=== PATIENT | male | born 1950 | race Caucasian/White ===

== ENCOUNTER 2018-05-25 20:06 | Emergency (ER) | payer OTHER ==
--- OUTSIDE RECORDS SUMMARY | 2018-05-25 20:10 | XMS REPORT | Clinical Summary ---
Author Author [facility] Address Unknown Phone Unavailable Care Team Providers Care Noxious Weeds And Pest Inspector Name Role Phone Asked, No Pcp PCP Unavailable Allergies No Known Allergies Medications End Date Status Medication Sig Dispensed Refills Start Date Active etodolac (LODINE XL) 500 Take 500 mg 0 MG 24 hr tablet by mouth daily. Takes 2 daily Active oxyCODone-acetaminophen Take 1 tablet 0 (PERCOCET) 10-325 mg per by mouth tablet every 4 (four) hours as needed for moderate pain. Active naproxen sodium (ALEVE) Take 220 mg 0 220 MG tablet by mouth 2 (two) times a day with meals. 10/24/2017 Discontinued NAPROXEN ORAL Take 1 tablet 0 by mouth 3 (three) times a day as needed. Active Problems Not on file Encounters Care Team Description Date Type Specialty Mo Tate MD 04/15/2018 Hospital Orthopedic Surgery Encounter Malinda Tate MD Goytia, Robin N., MD Preop testing (Primary Dx) 03/27/2018 Pre-Admit Pre-Admission Testing Testing Appointment Tyrell Sanches MD 10/24/2017 Anesthesia General Surgery Event Sina Madrigal II, MD RIGHT KNEE ARTHROSCOPIC PARTIAL MEDIAL MENISCECTOMY 10/24/2017 Surgery General Surgery Sina Madrigal II, MD 10/24/2017 Hospital General Surgery Encounter after 05/24/2017 Family History Medical History Relation Name Comments Cancer Father No Known Problems Mother Relation Name Status Comments Father Mother Social History Date Tobacco Use Types Packs/Day Years Used Quit: 09/2016 Former Smoker Cigarettes 1 45 Smokeless Tobacco: Never Used Alcohol Use Drinks/Week oz/Week Comments Yes 6 beers per week Sex Assigned at Date Recorded Not on file Industry Job Start Date Occupation Not on file Not on file Not on file Travel End Travel History Travel Start No recent travel history available. Last Filed Vital Signs Time Taken Vital Sign Reading 04/15/2018 6:54 AM CREATIVE PERFUMER Blood Pressure 188/86 04/15/2018 6:54 AM CREATIVE PERFUMER Pulse 65 04/15/2018 6:54 AM CREATIVE PERFUMER Temperature 36.4 C (97.5 F) 04/15/2018 6:54 AM CREATIVE PERFUMER Respiratory Rate 18 04/15/2018 6:54 AM CREATIVE PERFUMER Oxygen Saturation 98% - Inhaled Oxygen - Concentration 04/15/2018 6:54 AM CREATIVE PERFUMER Weight 108 kg (237 lb 12.8 oz) 04/15/2018 6:54 AM CREATIVE PERFUMER Height 175.3 cm (5' 9") 04/15/2018 6:54 AM CREATIVE PERFUMER Body Mass Index 35.12 Plan of Treatment Health Maintenance Due Date Last Done Comments COLON CANCER SCREENING 2002 SHINGLES VACCINES (1 of 2002 2) PNEUMOCOCCAL 2017 POLYSACCHARIDE VACCINE AGE 65 AND OVER PNEUMOCOCCAL-13 2017 INFLUENZA VACCINE 11/26/2017 Procedures Comments Procedure Name Priority Date/Time Associated Diagnosis POC GLUCOSE Routine 04/15/2018 9:27 AM CREATIVE PERFUMER HEMOGLOBIN A1C STAT 04/15/2018 8:51 AM CREATIVE PERFUMER POC GLUCOSE Routine 04/15/2018 8:05 AM CREATIVE PERFUMER POC GLUCOSE Routine 04/15/2018 6:41 AM CREATIVE PERFUMER POC GLUCOSE Routine 04/15/2018 6:39 AM CREATIVE PERFUMER TYPE AND SCREEN Routine 03/27/2018 Preop testing 10:54 AM CREATIVE PERFUMER GA AN ELECTIVE Routine 10/24/2017 SUPRAGLOTTIC AIRWAY 8:37 AM CDT Procedure Note - Lele Raymond, LOKESH - 10/24/2017 8:37 AM CDT Airway Date/Time: 10/24/2017 8:29 AM Performed by: LELE RAYMOND Authorized by: TYRELL SANCHES Location: OR Urgency: Elective Difficult Airway: No Resident/C RNA/AA: LELE RAYMOND Performed by: resident/C RNA/AA Preoxygena jovanni with 100% O2: Yes Mask Ventilatio n: Not attempted Final Airway Type: Supraglott ic airway Final LMA: Classic LMA Size: 5 Number of Attempts at Approach: 1 OPERATION, KNEE, 10/24/2017 Complex tear of medial ARTHROSCOPIC 7:30 AM CDT meniscus of right knee as current injury Special Needs O/P / OSCAR THOMAS TO ASSIST / after 05/24/2017 Results * POC glucose (04/15/2018 9:27 AM CREATIVE PERFUMER) Only the most recent of 4 results within the time period is included. POC glucose 305 (H) 65 - 99 mg/dL [facility] Comment: [facility] Notified RN Meter ID: [id number] Residential Advisor: Mariluz Denis Performing Organization Address City/State/Zipcode Phone Number [facility] DEPARTMENT OF [address] [place] [address] PATHOLOGY AND GENOMIC MEDICINE [address] * Hemoglobin A1c (04/15/2018 8:51 AM CREATIVE PERFUMER) Hemoglobin A1C 11.4 (H) 4.0 - 5.6 % [facility] Comment: HOSPITAL HbA1c cutoffs for diagnosing diabetes: 4.0% - 5.6%=normal 5.7% - 6.4%=increased risk for diabetes (prediabetes) >=6.5%=diabetes Goals for glycemic control (ADA 2016) < 7.0%Target for non adults with diabetes. More or less stringent targets may be appropriate for individual patients. <7.5% Target for Children and adolescents with type 1 diabetes. Specimen Blood Performing Organization Address City/[facility] Phone Number [facility] DEPARTMENT OF [address] [place] [address] PATHOLOGY AND GENOMIC MEDICINE [address] * Type and screen (03/27/2018 10:54 AM CREATIVE PERFUMER) ABO grouping B [facility] Rh type POS [facility] Antibody screen (gel) NEG [facility] Specimen Blood Performing Organization Address City/[facility]/Zipcode Phone Number [facility] DEPARTMENT [address] [address] PATHOLOGY AND GENOMIC MEDICINE [address] after 05/24/2017 Insurance Payer Benefit Subscriber ID Type Phone Address Plan / Group WORKERS COMP TRAVELERS xxxxxxx Workers Comp AETNA MEDICARE AETNA xxxxxxxx HMO MEDICARE HMO/PPO [facility] Zak Carreno Workers Self 1950 [phone] [id number] (Home) [place] [id number] Advance Directives Patient has advance care planning documents on file. For more information, joleen jensen contact: Albin Woods [address] [place] [address]
--- OUTSIDE RECORDS SUMMARY | 2018-05-25 20:10 | XMS REPORT ---
Author Author [facility] Address Unknown Phone Unavailable Care Team Providers Care Electrical Laboratory Technician Name Role Phone Unavailable Unavailable Payers Payer Name Policy Type Policy Number Effective Date Expiration Date Problems This patient has no known problems. Allergies, Adverse Reactions, Alerts Allergy Name Allergy Type Status Severity Reaction(s) Onset Date Inactive Date Treating Clinician Comments No Known Allergies DA Active U 2018-03-13 00:00:00 Medications This patient has no known medications.
--- OUTSIDE RECORDS SUMMARY | 2018-05-25 20:10 | XMS REPORT | Summary of Care ---
Author Author Amanda Burk M.A. Organization Unknown Address Unknown Phone Unavailable Care Team Providers Care Civil Geotechnical Engineer Name Role Phone Amanda Burk M.A. 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 Medications Name Dates Details Medications not documented Allergies and Adverse Reactions Name Dates Details No Known Allergies (Allergy) Status: Active Procedures Procedure Dates Details [QH] LIPID PANEL WITH REFLEX TO DIRECT LDL Date: 23-Apr-2017 [QLH] CBC (INCLUDES DIFF/PLT) Date: 23-Apr-2017 [QLH] CMP W/EGFR Date: 23-Apr-2017 [QLH] TSH, 3RD GENERATION W/REFLEX TO FT4 Date: 23-Apr-2017 [Q] FECAL GLOBIN BY IMMUNOCHEMISTRY Date: 23-Apr-2017 History of rotator cuff repair Completed Immunization Name Dates Details Immunizations not documented Family History Name Dates Details Family history of alcoholism (V17.0, Z81.1) Status: Active Social History Name Dates Details - Status: Name Dates Details Former smoker Vital Signs Date Test Result Details [id number] BP Systolic 135 mm[Hg] Status: Comments: Location: LUE; Position: Sitting BP Diastolic 85 mm[Hg] Status: Comments: Location: LUE; Position: Sitting Height 69 in Status: Weight 239 lb Status: Body Mass Index Calculated 35.29 kg/m2 Status: Body Surface Area Calculated 2.23 m2 Status: Temperature 97.9 f Status: Comments: Method: Temporal Respiration Rate 16 /min Status: Heart Rate 62 /min Status: Results Date Description Value Details [id number] [QH] LIPID PANEL WITH REFLEX TO DIRECT LDL CHOLESTEROL, TOTAL 175 mg/dl (Normal) Range: <200 HDL CHOLESTEROL 25 mg/dl (Below low threshold) Range: >40 TRIGLYCERIDES 311 mg/dl (Above high threshold) Range: <150 LDL-CHOLESTEROL 109 {MG/DL__CAL} (Above high threshold) Comments: Reference range: <100 Desirable range <100 mg/dL for patients with CHD ordiabetes and <70 mg/dL for diabetic patients withknown heart disease. LDL-C is now calculated using the Cailin calculation, which is a validated novel method providing better accuracy than the Friedewald equation in the estimation of LDL- C. Jackson DIXON et al. SHEYLA. 2013;310(19): 7899-6447 (http://education.[employer]/faq/ULP753) CHOL/HDLC RATIO 7.0 {CALC} (Above high threshold) Range: <5.0 NON HDL CHOLESTEROL 150 {MG/DL__CAL} (Above high threshold) Range: <130 Comments: For patients with diabetes plus 1 major ASCVD risk factor, treating to a non-HDL-C goal of <100 mg/dL (LDL-C of <70 mg/dL) is considered a therapeutic option. [id number] [[facility]] CMP W/EGFR GLUCOSE 148 mg/dl (Above high threshold) Range: 65-99 Comments: Fasting reference interval For someone without known diabetes, a glucosevalue >125 mg/dL indicates that they may havediabetes and this should be confirmed with afollow-up test. UREA NITROGEN (BUN) 16 mg/dl (Normal) Range: 7-25 CREATININE 0.99 mg/dl (Normal) Range: 0.70-1.25 Comments: For patients >49 years of age, the reference limitfor Creatinine is approximately 13% higher for peopleidentified as -[place]. eGFR NON- 80 {ML/MIN/1.7} (Normal) Range: > OR=60 eGFR 93 {ML/MIN/1.7} (Normal) Range: > OR=60 BUN/CREATININE RATIO NOT APPLICABLE {CALC} Range: 6-22 SODIUM 141 mmol/L (Normal) Range: 135-146 POTASSIUM 4.7 mmol/L (Normal) Range: 3.5-5.3 CHLORIDE 104 mmol/L (Normal) Range: 98-110 CARBON DIOXIDE 31 mmol/L (Normal) Range: 20-31 CALCIUM 9.1 mg/dl (Normal) Range: 8.6-10.3 PROTEIN, TOTAL 7.4 g/dl (Normal) Range: 6.1-8.1 ALBUMIN 4.6 g/dl (Normal) Range: 3.6-5.1 GLOBULIN 2.8 {G/DL__CALC} (Normal) Range: 1.9-3.7 ALBUMIN/GLOBULIN RATIO 1.6 {CALC} (Normal) Range: 1.0-2.5 BILIRUBIN, TOTAL 0.4 mg/dl (Normal) Range: 0.2-1.2 ALKALINE PHOSPHATE 71 u/l (Normal) Range: 40-115 AST 19 u/l (Normal) Range: 10-35 ALT 27 u/l (Normal) Range: 9-46 [id number] [[facility]] CBC (INCLUDES DIFF/PLT) WHITE BLOOD CELL COUNT 6.1 {Thousand/u} (Normal) Range: 3.8-10.8 RED BLOOD CELL COUNT 4.81 {Million/uL} (Normal) Range: 4.20-5.80 HEMOGLOBIN 14.8 g/dl (Normal) Range: 13.2-17.1 HEMATOCRIT 43.2 % (Normal) Range: 38.5-50.0 MCV 89.8 fL (Normal) Range: 80.0-100.0 MCH 30.8 pg (Normal) Range: 27.0-33.0 MCHC 34.3 g/dl (Normal) Range: 32.0-36.0 RDW 12.7 % (Normal) Range: 11.0-15.0 PLATELET COUNT 235 {Thousand/u} (Normal) Range: 140-400 MPV 10.4 fL (Normal) Range: 7.5-12.5 ABSOLUTE NEUTROPHILS 2751 {cells/uL} (Normal) Range: 0426-1417 ABSOLUTE LYMPHOCYTES 2355 {cells/uL} (Normal) Range: 850-3900 ABSOLUTE MONOCYTES 653 {cells/uL} (Normal) Range: 200-950 ABSOLUTE EOSINOPHILS 281 {cells/uL} (Normal) Range: 15-500 ABSOLUTE BASOPHILS 61 {cells/uL} (Normal) Range: 0-200 NEUTROPHILS 45.1 % (Normal) LYMPHOCYTES 38.6 % (Normal) MONOCYTES 10.7 % (Normal) EOSINOPHILS 4.6 % (Normal) BASOPHILS 1.0 % (Normal) [id number] [QL] TSH, 3RD GENERATION W/REFLEX TO FT4 Comments: REPORT COMMENT:FASTING:YESCOLLECTION KIT GIVEN TO PATIENT. PATIENT ADVISED TO RETURN. TSH, 3RD GENERATION W/REFLEX TO FT4 2.69 {MIU/L} (Normal) Range: 0.40-4.50 [id number] Tobacco Use Screening Completed DONE Plan of Care Name Dates Details Planned Observations Planned Goals not documented Instructions Name Dates Details Instructions not documented Encounters Appointment; FELICITAS RUTHERFORD D.O. Encounter Diagnosis: Problem not documented On: 23-Apr-2017 10:00
[2018-05-25] MEDS ORDERED: SODIUM CHLORIDE 0.9% 1000ML 1,000 ML IV STA (20:27)
[2018-05-25] MEDS ORDERED: ONDANSETRON HCL INJ 2MG/ML 2ML 2 MG/ML VIAL IV ONE (21:00)
[2018-05-25] MEDS ORDERED: MORPHINE SULFATE INJ 4 MG/ML INJ 1ML IV ONE (21:00)
--- NOTE | 2018-05-25 22:08 | NUR ---
PATIENT INFORMED THAT HE WAS ABOUT TO GO TO ROOM AND JUNIOR ACCOUNTANT BOOKKEEPER HERE TO PICK HIM UP FOR CT. PATIENT STATES HE WANTS TO LEAVE DUE TO HAVING TO GO TO WORK AND PAIN IS NOT RESOLVED. PATIENT STATES HE WILL COME BACK IF PAIN RETURNS.
[2018-05-25 22:34] LABS: BILIRUBIN,URINE NEGATIVE (NEGATIVE); CLARITY,URINE CLEAR (CLEAR); COLOR,URINE YELLOW (YELLOW); KETONES,URINE NEGATIVE (NEGATIVE); LEUKOCYTE ESTERASE ,URINE NEGATIVE (NEGATIVE); NITRITE,URINE NEGATIVE (NEGATIVE); PROTEIN,URINE DIPSTICK NEGATIVE (NEGATIVE); URINE UROBILINOGEN 0.2 mg/dL (0.2 - 1)
[2018-05-25 22:58] LABS: RBC,URINE 0-5 /HPF (0-5); WBC,URINE (MAN) 0-5 /HPF (0-5)
[2018-05-25 22:59] LABS: BACTERIA,URINE FEW /HPF; EPITHELIAL CELLS,URINE FEW /LPF; MUCUS,URINE MANY (RARE)
== END 2018-05-25 22:10 | disposition left against medical advice (07) ==
LOC: ER 20:06
DX: R10.2 Pelvic and perineal pain (principal)
CPT/HCPCS: 81001; 99281

== ENCOUNTER → 2018-11-03 | Outpatient (CLI) | payer MEDICARE ==
[~2018-11-03] MED LIST: ATORVASTATIN CA20 MG PO; COLACE100 MG PO; FISH OIL 1,0001 EAC2 PO; IOPAMIDOL 370 MG/ML 200 ML INFUS..BTL INJ ONE; JANUMET XR 50-1 EAC1 PO; LEVAQUIN500 MG PO; LISINOPRIL10 MG PO; PANTOPRAZOLE SO40 MG PO; SODIUM CHLORIDE 0.9% 50ML 50 ML ONE; TYLENOL # 31 EA PO; VITAMIN D3400 UNIT PEG
[2018-11-03 13:50] LABS: BLOOD UREA NITROGEN 15 mg/dL (7-26); BUN/CREATININE RATIO 14 (6-25); CREATININE, SERUM 1.06 mg/dL (0.72-1.25); EST GLOMERULAR FILTRATION RATE > 60 ML/MIN (60-)
--- NOTE | 2018-11-03 14:39 | Diagnostic Imaging Report ---
EXAMINATION: CHEST 2 VIEWS INDICATION: Prostate cancer COMPARISON: None FINDINGS: TUBES and LINES: None. LUNGS: The lung volumes are normal. No focal consolidation or pulmonary edema. PLEURA: No pleural effusion or pneumothorax. HEART AND MEDIASTINUM: The cardiomediastinal silhouette is normal in size and contour. Atherosclerotic calcifications of the thoracic aorta. BONES AND SOFT TISSUES: No acute fracture or dislocation. Moderate degenerative changes of the visualized spine. Postoperative changes of the right shoulder. UPPER ABDOMEN: No free air under the diaphragm. IMPRESSION: No suspicious lung nodules. Note is made that plain films lack sensitivity for detection of small lung nodules. If there is concern for metastatic disease, cross-sectional imaging should be obtained. No focal pneumonia or pulmonary edema. Signed by: Juancho Cabrera MD on 11/03/2018 2:36 PM
--- NOTE | 2018-11-03 15:11 | Diagnostic Imaging Report ---
EXAM: CT Pelvis WITH contrast INDICATION: Prostate cancer COMPARISON: None. TECHNIQUE: Pelvis were scanned utilizing a multidetector helical scanner from the iliac crest to the pubic symphysis following administration of IV contrast. Coronal and sagittal reformations were obtained. Routine protocol was performed. IV CONTRAST: 100 cc of Isovue-370 ORAL CONTRAST: None RADIATION DOSE: Total DLP: 362.61 mGy*cm Dose modulation, iterative reconstruction, and/or weight based adjustment of the mA/kV was utilized to reduce the radiation dose to as low as reasonably achievable. COMPLICATIONS: None FINDINGS: LINES and TUBES: None. GI TRACT: No abnormal distention, wall thickening, or evidence of bowel obstruction. Appendix is normal. PELVIC ORGANS/BLADDER: The prostate is enlarged, measuring up to 5.2 cm with coarse internal calcifications. LYMPH NODES: No lymphadenopathy. VESSELS: Atherosclerotic calcifications of the lower abdominal aorta and major branches. PERITONEUM / RETROPERITONEUM: No free air or fluid. BONES: Degenerative changes of the visualized spine with grade 1 anterolisthesis of L5 on S1. Degenerative changes involve both hip joints with joint space narrowing, subchondral cystic change and osteophytosis. No suspicious lytic or blastic lesions. SOFT TISSUES: There are bilateral left greater than right inguinal hernias. The left hernia contains loops of sigmoid colon. The right hernia is smaller and contains nondilated loops of small bowel. No evidence of bowel wall thickening, pneumatosis, or bowel obstruction. IMPRESSION: Enlarged prostate with coarse calcifications. Note is made that CT is not an optimal modality for evaluation of prostatic soft tissues. No suspicious blastic osseous lesions. Bilateral left greater than right inguinal hernias containing sigmoid colon on the left and small bowel on the right. No evidence of obstruction. Signed by: Juancho Cabrera MD on 11/03/2018 3:08 PM
--- NOTE | 2018-11-03 20:17 | Diagnostic Imaging Report ---
Bone Scan, delayed phase INDICATION: C61 Prostate cancer diagnosed 09/2018. Bilateral shoulder pain/ Right knee arthroplasty 05/2018. Right shoulder surgery 10 years ago. COMPARISON: CT pelvis 11/03/2018 REPORT: Approximately 3 hours following intravenous administration of 27 mCi of Tc-99m MDP, delayed total body images in the anterior and posterior projections and selected spot images were obtained. Degenerative changes are present in the upper cervical spine, multiple levels of the thoracic spine on the right and at L5/S1 as well as in the shoulders, right sternoclavicular joint, hips, left knee and feet. Increased tracer is seen surrounding both components of the right knee prosthesis, typical for prosthesis of less than one year. Otherwise, distribution of tracer activity is unremarkable throughout the skeletal system. Diffusely increased tracer is seen in the right thigh distally and right lower leg proximally related to hyperemic process post arthroplasty less than one year ago. No abnormal accumulation of tracer is seen in the urinary tract. IMPRESSION: 1. No scan evidence of metastatic bone disease. 2. No acute osteoblastic process is seen in the shoulders to suggest an etiology of shoulder pain other than mild degenerative changes. Signed by: Dr. Brisa Delgado M.D. on 11/03/2018 8:13 PM
== END ==
LOC: NM 12:39
PROVIDERS: ATTEND Urology
DX: C61 Malignant neoplasm of prostate (principal)
CPT/HCPCS: 36415; 71046; 72193; 78306; 82565; 84520; A9503; Q9967

== ENCOUNTER 2018-12-14 11:00 | Inpatient (IN) | payer MEDICARE ==
[2018-12-10 14:16] LABS: BASOPHILS % 0.7 % (0.0-1.0); EOSINOPHILS # (AUTO) 0.2 (0.0-0.4); EOSINOPHILS % 3.9 % (0.0-6.0); HEMATOCRIT 40.5 % (38.2-49.6); HEMOGLOBIN 13.8 g/dL (14.0-18.0); LYMPHOCYTES % 37.2 % (18.0-39.1); MEAN CORPUSCULAR HEMOGLOBIN 30.3 pg (28-32); MEAN CORPUSCULAR HGB CONC 34.1 g/dL (31-35); MONOCYTES # (AUTO) 0.6 (0.2-0.8); MONOCYTES % 10.8 % (4.4-11.3); NEUTROPHILS # (AUTO) 2.5 (2.1-6.9); PLATELET COUNT 186 x10e3/uL (140-360); RED BLOOD COUNT 4.55 x10e6/uL (4.3-5.7); RED CELL DISTRIBUTION WIDTH 13.4 % (11.7-14.4)
[2018-12-10 14:35] LABS: ANION GAP 12.1 mmol/L (8-16); BLOOD UREA NITROGEN 14 mg/dL (7-26); BUN/CREATININE RATIO 14 (6-25); CALCIUM 8.9 mg/dL (8.4-10.2); CARBON DIOXIDE 26 mmol/L (22-29); CHLORIDE 103 mmol/L (98-107); CREATININE, SERUM 0.97 mg/dL (0.72-1.25); EST GLOMERULAR FILTRATION RATE > 60 ML/MIN (60-); GLUCOSE 87 mg/dL (74-118); POTASSIUM 4.1 mmol/L (3.5-5.1); SODIUM 137 mmol/L (136-145)
[~2018-12-14] VITALS: Ht 175.3 cm; Wt 104.9 kg
[~2018-12-14 11:00] MED LIST changes: -COLACE100 MG PO; -IOPAMIDOL 370 MG/ML 200 ML INFUS..BTL INJ ONE; -LEVAQUIN500 MG PO; -PANTOPRAZOLE SO40 MG PO; -SODIUM CHLORIDE 0.9% 50ML 50 ML ONE; -TYLENOL # 31 EA PO
--- OUTSIDE RECORDS SUMMARY | 2018-12-14 11:07 | XMS REPORT | Clinical Summary ---
Author Author [facility] Organization [facility] Address Unknown Phone Unavailable Care Team Providers Care Senior Infrastructure Architect Name Role Phone Asked, No Pcp PCP Unavailable Allergies No Known Allergies Medications End Date Status Medication Sig Dispensed Refills Start Date Active sitaGLIPtin-metformin Take by 0 (JANUMET XR) 50-1,000 mg mouth. tablet, ER multiphase 24 hr Active acetaminophen-codeine Take 1 tablet 0 (TYLENOL WITH CODEINE #3) by mouth 300-30 mg per tablet every 4 (four) hours as needed for moderate pain. Active lisinopril Take 10 mg by 0 (PRINIVIL,ZESTRIL) 10 mg mouth 2 (two) tablet times a day. Active atorvastatin (LIPITOR) 20 Take 20 mg by 0 MG tablet mouth daily. Default OP ins Active docosahexanoic acid/epa Take by 0 (FISH OIL ORAL) mouth. Active cholecalciferol, vitamin Take 1,000 0 D3, (VITAMIN D3) 1,000 Units by unit tablet mouth daily. 06/15/2018 Discontinued etodolac (LODINE XL) 500 Take 500 mg 0 MG 24 hr tablet by mouth daily. Takes 2 daily 06/15/2018 Discontinued oxyCODone-acetaminophen Take 1 tablet 0 (PERCOCET) 10-325 mg per by mouth tablet every 4 (four) hours as needed for moderate pain. 06/15/2018 Discontinued naproxen sodium (ALEVE) Take 220 mg 0 220 MG tablet by mouth 2 (two) times a day with meals. 07/25/2018 aspirin (ECOTRIN) 81 MG Take 1 tablet 60 tablet 0 enteric coated tablet (81 mg total) 9 by mouth 2 (two) times a day for 30 days. 07/25/2018 HYDROcodone-acetaminophen Take 2 0 (NORCO) 10-325 mg per tablets by 9 tablet mouth every 6 (six) hours as needed for severe pain for up to 30 days. Max Daily Amount: 8 tablets Active Problems Problem Noted Date Arthritis of right knee 06/25/2018 Arthritis of knee, right 06/24/2018 Encounters Care Team Description Date Type Specialty Mo Tate MD ARTHROPLASTY, KNEE, TOTAL 06/24/2018 Surgery Orthopedic Surgery Redd Narvaez MD Delaflor-Santaana, Miriam, NP 06/24/2018 Anesthesia Orthopedic Surgery Event Mo Tate MD 06/24/2018 Hospital Orthopedic Surgery - Encounter 06/25/2018 Mo Tate MD Preoperative testing (Primary Dx) 06/15/2018 Pre-Admit Pre-Admission Testing Testing Appointment Mo Tate MD 04/15/2018 Hospital Orthopedic Surgery Encounter Malinda Tate MD Goytia, Robin N., MD Preop testing (Primary Dx) 03/27/2018 Pre-Admit Pre-Admission Testing Testing Appointment after 12/13/2017 Immunizations Name Administration Dates Next Due Pneumococcal Conjugate 06/25/2018 13-Valent Family History Medical History Relation Name Comments Cancer Father No Known Problems Mother Relation Name Status Comments Father Mother Social History Date Tobacco Use Types Packs/Day Years Used Quit: 09/2016 Former Smoker Cigarettes 1 45 Smokeless Tobacco: Never Used Drinks/Week oz/Week Comments Alcohol Use 6 beers per week, quit Yes Sex Assigned at Date Recorded Not on file Industry Job Start Date Occupation Not on file Not on file Not on file Travel End Travel History Travel Start No recent travel history available. Last Filed Vital Signs Reading Time Taken Comments Vital Sign 143/75 06/25/2018 11:44 AM CRIME SCENE SPECIALIST Blood Pressure 72 06/25/2018 11:44 AM CRIME SCENE SPECIALIST Pulse 36 C (96.8 F) 06/25/2018 11:44 AM CRIME SCENE SPECIALIST Temperature 18 06/25/2018 11:44 AM CRIME SCENE SPECIALIST Respiratory Rate 98% 06/25/2018 11:44 AM CRIME SCENE SPECIALIST Oxygen Saturation - - Inhaled Oxygen Concentration 103 kg (228 lb) 06/24/2018 4:34 PM CRIME SCENE SPECIALIST Weight 175.3 cm (5' 9") 06/24/2018 4:34 PM CRIME SCENE SPECIALIST Height 33.67 06/24/2018 4:34 PM CRIME SCENE SPECIALIST Body Mass Index Plan of Treatment Health Maintenance Due Date Last Done Comments COLONOSCOPY SCREENING 2002 SHINGLES VACCINES (#1) 2002 INFLUENZA VACCINE 11/26/2018 65+ PNEUMOCOCCAL VACCINE 06/25/2019 06/25/2018 (2 of 2 - PPSV23) Implants Device Identifier Shelf Expiration Date Model / Serial / Lot Implanted Type Area Manufactur er 04/27/2023 1518 20 041 / / [id number] Attune Medial Dome Pat 41mm - IPM Right: Knee DEPUY [id number] IMPLANT ORTHOPAEDI Implanted: Qty: 1 on 06/24/2018 by DEVICES ENDY LEAL Robin N., MD at [facility] 05/28/2027 [id number] / / [id number] Attune Fb Tib Base Sz 9 Wyatt - IPM Right: Knee DEPUY [id number] IMPLANT ORTHOPAEDI Implanted: Qty: 1 on 06/24/2018 by DEVICES ENDY LEAL Robin N., MD at [facility] 04/27/2022 [id number] / / [id number] Attune Fb Knee Insert Attune Ps Fb IPM Right: Knee DEPUY Insrt Sz 9 7mm - [id number] IMPLANT ORTHOPAEDI Implanted: Qty: 1 on 06/24/2018 by DEVICES ENDY LEAL Robin N., MD at [facility] [id number] 10 [id number] / / Attune Fb Knee Femur Attune Ps Fem IPM DEPUY Rt Sz 9 Wyatt - [id number] IMPLANT ORTHOPAEDI Implanted: Qty: 1 on 06/24/2018 by DEVICES ENDY LEAL Robin N., MD at [facility] 10/26/2019 [id number] / / [id number] Cement Bone Hiviscocty 40gr Surgical Right: Knee DEPUY Smartset - [id number] Bone ORTHO Implanted: Qty: 2 on 06/24/2018 by Mo Bowers MD at [facility] Procedures Comments Procedure Name Priority Date/Time Associated Diagnosis POC GLUCOSE Routine 06/25/2018 12:07 PM CRIME SCENE SPECIALIST POC GLUCOSE Routine 06/25/2018 7:17 AM CRIME SCENE SPECIALIST ESTIMATED GFR Routine 06/25/2018 3:26 AM CRIME SCENE SPECIALIST BASIC METABOLIC PANEL Routine 06/25/2018 3:26 AM CRIME SCENE SPECIALIST HEMOGLOBIN & HEMATOCRIT Routine 06/25/2018 3:26 AM CRIME SCENE SPECIALIST POC GLUCOSE Routine 06/24/2018 9:47 PM CRIME SCENE SPECIALIST POC GLUCOSE Routine 06/24/2018 4:02 PM CRIME SCENE SPECIALIST XR KNEE 1 OR 2 VW RIGHT Routine 06/24/2018 12:58 PM CRIME SCENE SPECIALIST POC GLUCOSE Routine 06/24/2018 12:05 PM CRIME SCENE SPECIALIST KS AN ELECTIVE Routine 06/24/2018 SUPRAGLOTTIC AIRWAY 10:56 AM CRIME SCENE SPECIALIST Procedure Note - Manuelito Mas CRNA - 06/24/2018 10:56 AM CRIME SCENE SPECIALIST Airway Date/Time: 06/24/2018 10:35 AM Performed by: Manuelito Mas CRNA Authorized by: Redd Narvaez MD Location: OR Urgency: Elective Difficult Airway: No Anesthesio logist: Redd Narvaez MD Resident/C RNA/AA: Manuelito Mas CRNA Performed by: resident/C RNA/AA Preoxygena jovanni with 100% O2: Yes C-spine Precaution s Maintained Throughout : Yes Final Airway Type: Supraglott ic airway Final LMA: Classic LMA Size: 5 Number of Attempts at Approach: 2 Eyes taped closed at LOC and prior to airway manipulati on. Atraumatic placement of LMA att x 2 by LOKESH; inadequate seal with I-gel #5, good seal with Classic #5. +EtCO2, +BBS. Dentition unchanged. No complicati ons. ARTHROPLASTY, KNEE, TOTAL 06/24/2018 Arthritis of right knee 10:30 AM CRIME SCENE SPECIALIST POC GLUCOSE Routine 06/24/2018 10:30 AM CRIME SCENE SPECIALIST URINE CULTURE Routine 06/15/2018 2:40 PM CRIME SCENE SPECIALIST ESTIMATED GFR Routine 06/15/2018 2:35 PM CRIME SCENE SPECIALIST TYPE AND SCREEN Routine 06/15/2018 Preoperative testing 2:35 PM CRIME SCENE SPECIALIST URINALYSIS SCREEN AND Routine 06/15/2018 Preoperative testing MICROSCOPY, WITH REFLEX 2:35 PM CRIME SCENE SPECIALIST TO CULTURE HEMOGLOBIN A1C Routine 06/15/2018 Preoperative testing 2:35 PM CRIME SCENE SPECIALIST PROTHROMBIN TIME WITH INR Routine 06/15/2018 Preoperative testing 2:35 PM CRIME SCENE SPECIALIST PARTIAL THROMBOPLASTIN Routine 06/15/2018 Preoperative testing TIME (PTT) 2:35 PM CRIME SCENE SPECIALIST COMPREHENSIVE METABOLIC Routine 06/15/2018 Preoperative testing PANEL 2:35 PM CRIME SCENE SPECIALIST HC COMPLETE BLD COUNT Routine 06/15/2018 Preoperative testing W/AUTO DIFF 2:35 PM CRIME SCENE SPECIALIST ECG 12-LEAD Routine 06/15/2018 Preoperative testing 2:31 PM CRIME SCENE SPECIALIST POC GLUCOSE Routine 04/15/2018 9:27 AM CRIME SCENE SPECIALIST HEMOGLOBIN A1C STAT 04/15/2018 8:51 AM CRIME SCENE SPECIALIST POC GLUCOSE Routine 04/15/2018 8:05 AM CRIME SCENE SPECIALIST POC GLUCOSE Routine 04/15/2018 6:41 AM CRIME SCENE SPECIALIST POC GLUCOSE Routine 04/15/2018 6:39 AM CRIME SCENE SPECIALIST TYPE AND SCREEN Routine 03/27/2018 Preop testing 10:54 AM CRIME SCENE SPECIALIST after 12/13/2017 Results * POC glucose (06/25/2018 12:07 PM CRIME SCENE SPECIALIST) Only the most recent of 10 results within the time period is included. [facility] POC glucose 174 (H) 65 - 99 mg/dL [facility] Comment: [facility] Notified RN HOSPITAL Meter ID: [id number] Salvage Engineer: Mau Gooden Specimen Performing Organization Address City/State/Zipcode Phone Number [facility] DEPARTMENT OF [address] [place] [address] PATHOLOGY AND GENOMIC MEDICINE [facility] [address] [place] [id number] HOSPITAL * Estimated GFR (06/25/2018 3:26 AM CRIME SCENE SPECIALIST) Only the most recent of 2 results within the time period is included. [facility] Estimated GFR 75 mL/min/1.73 m2 [facility] Comment: [facility] rpretation G1 >=90 Normal or high G2 60-89Mildly decreased [id number] Mildly to moderately decreased [id number] Moderately to severely decreased G4 15-29Severely decreased G5 <15Kidney failure The eGFR was calculated using the Chronic Kidney Disease Epidemiology Collaboration (CKD-EPI) equation. Interpretation is based on recommendations of the National Kidney Foundation-Kidney Disease Outcomes Quality Initiative (NKF-KDOQI) published in 2014. Specimen Plasma specimen Performing Organization Address City/[facility] Phone Number [facility] [place] [address] PATHOLOGY AND [facility] MED[facility] [address] * Hemoglobin & hematocrit (06/25/2018 3:26 AM CRIME SCENE SPECIALIST) [facility] HGB 12.8 (L) 14.0 - 18.0 g/dL [facility] HCT 39.1 (L) 41.0 - 51.0 % [facility] Specimen Blood Performing Organization Address [facility] Phone Number [facility] [place] [address] PATHOLOGY AND [facility] [address] * Basic metabolic panel (06/25/2018 3:26 AM CRIME SCENE SPECIALIST) [facility] Sodium 137 135 - 148 mEq/L [facility] Potassium 4.4 3.5 - 5.0 mEq/L [facility] Chloride 99 98 - 112 mEq/L [facility] CO2 21 (L) 24 - 31 mEq/L [facility] Anion gap 17@ANIO (H) 7 - 15 mEq/L [facility] BUN 16 8 - 23 mg/dL [facility] Creatinine 1.03 0.70 - 1.20 mg/dL [facility] Glucose 163 (H) 65 - 99 mg/dL [facility] Calcium 9.2 8.8 - 10.2 mg/dL [facility] Specimen Plasma specimen Performing Organization Address [facility] Phone Number [facility] [place] [address] PATHOLOGY AND [facility] [address] * XR Knee 1 Or 2 Vw Right (06/24/2018 12:58 PM CRIME SCENE SPECIALIST) Specimen Narrative Performed At EXAMINATION: XR KNEE 1 OR 2 VW RIGHT [facility] INDICATION: total knee arthoplasty COMPARISON: None IMPRESSION: 2 views of the right knee were obtained which demonstrate expected postoperative changes following total knee arthroplasty with appropriate implant alignment. [facility]-[id number] Procedure Note Interface, Radiology Results Incoming - 06/24/2018 1:54 PM CRIME SCENE SPECIALIST EXAMINATION: XR KNEE 1 OR 2 VW RIGHT INDICATION: total knee arthoplasty COMPARISON: None IMPRESSION: 2 views of the right knee were obtained which demonstrate expected postoperative changes following total knee arthroplasty with appropriate implant alignment. [facility]-[id number] Performing Organization Address City/State/Zipcode Phone Number [facility] [address] [place] [address] * Urine culture (06/15/2018 2:40 PM CRIME SCENE SPECIALIST) Urine culture SEE COMMENTComment: [facility] Bacteriuria screen negative. [facility] Specimen Performing Organization Address [facility] Phone Number [facility] DEPARTMENT OF [address] [place] [address] PATHOLOGY [place] [address] HOSPITAL * Urinalysis screen and microscopy, with reflex to culture (06/15/2018 2:35 PM CRIME SCENE SPECIALIST) Specimen site Clean catch [facility] Color, UA Yellow [facility] Appearance, UA Clear [facility] Specific 1.020 1.001 - 1.035 [facility] gravity, [facility] pH, UA 5.0 5.0 - 8.5 [facility] Protein, UA Negative Negative [facility] Glucose, UA Negative Negative [facility] Ketones, UA Negative Negative [facility] Bilirubin, UA Negative Negative [facility] Blood, UA Negative Negative [facility] Nitrite, UA Negative Negative [facility] Urobilinogen, <2.0 <2.0 [facility] Leukocyte Negative Negative [facility] esterase, [facility] WBC, UA 1 0 - 1 /HPF [facility] RBC, UA 2 0 - 5 /HPF [facility] Bacteria, UA None seen None seen [facility] Yeast, UA None seen [facility] Yeast with None seen [facility] pseudohyphae, [facility] Specimen Urine Performing Organization Address City/[facility] Phone Number [facility] DEPARTMENT OF [address] [place] [address] PATHOLOGY AND GENOMIC MEDICINE [address] * Partial thromboplastin time, activated (06/15/2018 2:35 PM CRIME SCENE SPECIALIST) [facility] PTT 37.9 (H) 23.0 - 36.0 sec [facility] Comment: [facility] PTT therapeutic range for HOSPITAL unfractionated heparin is 61.0-112.0 seconds which corresponds to Anti-Xa 0.3-0.7 U/ml. Specimen Blood Performing Organization Address City/[facility]/Zipcode Phone Number [facility] DEPARTMENT OF [address] [place] [address] PATHOLOGY AND [facility] [address] * Prothrombin time with INR (06/15/2018 2:35 PM CRIME SCENE SPECIALIST) [facility] Prothrombin 14.0 11.5 - 14.5 sec [facility] INR 1.1 [facility] Comment: [facility] The International Normalized HOSPITAL Ratio (INR) is a therapeutic monitoring tool for patients who are stable on oral anticoagulant therapy. An INR of 2.0-3.0 is suggested for deep vein thrombosis/pulmonary embolism. Specimen Blood Performing Organization Address City/[facility] Phone Number [facility] DEPARTMENT OF [address] [place] [address] PATHOLOGY AND [facility] [address] * CBC with platelet and differential (06/15/2018 2:35 PM CRIME SCENE SPECIALIST) [facility] WBC 5.92 4.50 - 11.00 k/uL [facility] RBC 4.58 4.40 - 6.00 m/uL [facility] HGB 13.9 (L) 14.0 - 18.0 g/dL [facility] HCT 43.3 41.0 - 51.0 % [facility] MCV 94.5 82.0 - 100.0 fL [facility] MCH 30.3 27.0 - 34.0 pg [facility] MCHC 32.1 31.0 - 37.0 g/dL [facility] RDW - SD 42.9 37.0 - 55.0 fL [facility] MPV 10.2 8.8 - 13.2 fL [facility] Platelet count 230 150 - 400 k/uL [facility] Nucleated RBC 0.00 /100 WBC [facility] Neutrophils 60.7 39.0 - 69.0 % [facility] Lymphocytes 28.7 25.0 - 45.0 % [facility] Monocytes 6.6 0.0 - 10.0 % [facility] Eosinophils 3.2 0.0 - 5.0 % [facility] Basophils 0.5 0.0 - 1.0 % [facility] Immature 0.3Comment: "Immature 0.0 - 1.0 % [facility] granulocytes granulocytes" (promyelocytes, [facility] myelocytes, metamyelocytes) [facility] Specimen Blood Performing Organization Address City/[facility] Phone Number [facility] [place] [address] PATHOLOGY AND GENOMIC MEDICINE [address] * Type and screen (06/15/2018 2:35 PM CRIME SCENE SPECIALIST) Only the most recent of 2 results within the time period is included. ABO grouping B [facility] Rh type POS [facility] Antibody screen NEG [facility] (gel) [facility] Specimen Blood Performing Organization Address City/[facility] Phone Number [facility] [place] [address] PATHOLOGY AND GENOMIC MEDICINE [address] * Hemoglobin A1c (06/15/2018 2:35 PM CRIME SCENE SPECIALIST) Only the most recent of 2 results within the time period is included. Hemoglobin A1C 7.7 (H) 4.0 - 5.6 % [facility] Comment: [facility] HbA1c cutoffs for diagnosing HOSPITAL diabetes: 4.0% - 5.6%=normal 5.7% - 6.4%=increased risk for diabetes (prediabetes) >=6.5%=diabetes Goals for glycemic control (ADA 2016) < 7.0%Target for non adults with diabetes. More or less stringent targets may be appropriate for individual patients. <7.5% Target for Children and adolescents with type 1 diabetes. Specimen Blood Performing Organization Address City/State/Zipcode Phone Number [facility] DEPARTMENT OF [address] [place] [address] PATHOLOGY AND GENOMIC MEDICINE [address] * Comprehensive metabolic panel (06/15/2018 2:35 PM CRIME SCENE SPECIALIST) Sodium 141 135 - 148 mEq/L [facility] Potassium 4.0 3.5 - 5.0 mEq/L [facility] Chloride 101 98 - 112 mEq/L [facility] CO2 23 (L) 24 - 31 mEq/L [facility] Anion gap 17@ANIO (H) 7 - 15 mEq/L [facility] BUN 15 8 - 23 mg/dL [facility] Creatinine 0.95 0.70 - 1.20 mg/dL [facility] Glucose 217 (H) 65 - 99 mg/dL [facility] Calcium 9.3 8.8 - 10.2 mg/dL [facility] Protein 7.8 6.3 - 8.3 g/dL [facility] Comment: [facility] 4.6-7.0 g/dL 1 week 4.4-7.6 g/dL 7 months-1year 5.1-7.3 g/dL 1-2 years5.6-7 .5 g/dL >3 years6.0-8 .0 g/dL 18-150 6.3-8.3 g/dL Albumin 4.2 3.5 - 5.0 g/dL [facility] A/G ratio 1.2 0.7 - 3.8 [facility] Alkaline 70 40 - 129 U/L [facility] phosphatase [facility] AST 33 10 - 50 U/L [facility] ALT 47 5 - 50 U/L [facility] Total bilirubin 0.4 0.0 - 1.2 mg/dL [facility] Specimen Plasma specimen Performing Organization Address City/State/Zipcode Phone Number [facility] DEPARTMENT OF [address] [place] [phone] PATHOLOGY [place] [address] HOSPITAL * ECG 12 lead (06/15/2018 2:31 PM CRIME SCENE SPECIALIST) Ventricular 65 [facility]USE rate Atrial rate 65 [facility] [place] interval 210 [facility] QRSD interval 94 [facility] QT interval 394 [facility] QTC interval [address] [facility] MUSE P axis 1 51 [facility] QRS axis 1 61 [facility] T wave axis [address] [facility] MUSE EKG impression Sinus rhythm with 1st [address] [facility] MUSE AV block-Otherwise normal ECG-No previous ECGs available- Specimen Narrative Performed At Performing Organization Address City/State/Zipcode Phone Number [facility] MUSE [address] [place] [address] after 12/13/2017 Insurance Type Payer Benefit Subscriber ID Effective Phone Address Plan / Dates Group HMO AETNA MEDICARE AETNA xxxxxxxx 2018- MEDICARE Present HMO/PPO MCR Workers Comp WORKERS COMP TRAVELERS xxxxxxx 2017- Present Advance Directives For more information, please contact: [phone] Patient Endodontic Assistant Explanation Type Date Recorded Advance Directives, 10/23/2017 1:32 PM Living Will and Medical Power of Hospitalist Physician
[2018-12-14] MEDS ORDERED: GENTAMICIN 80MG/NS 100 ML 200 ML IV ONE (11:30)
[2018-12-14] MEDS ORDERED: CLINDAMYCIN PHOS 900MG/ 50ML 50 ML IV ONE (11:30)
[2018-12-14] MEDS ORDERED: PIPER-TAZ 3.375 GM 50 ML ONE (11:30)
[2018-12-14] MEDS ORDERED: METHYLENE BLUE 1% INJ 10 ML VIAL INJ ONE (13:05)
[2018-12-14] MEDS ORDERED: LIDOCAINE HCL 2% LOCAL INJ 5 ML SDV VIAL INJ ONE (13:57)
[2018-12-14] MEDS ORDERED: SEVOFLURANE INHAL SOLN 250 ML PEN BTL ONE (13:57)
[2018-12-14] MEDS ORDERED: ACETAMINOPHEN 1000 MG/100 ML IV ONE (13:57)
[2018-12-14] MEDS ORDERED: PROPOFOL IV EMULSION 10 MG/ML 20 ML VIAL ONE (13:57)
[2018-12-14] MEDS ORDERED: ROCURONIUM BROMIDE 10 MG/ML 5ML VIAL ONE (13:57)
[2018-12-14] MEDS ORDERED: DEXAMETHASONE SOD PHOS INJ 4 MG/ML VIAL ONE (13:57)
[2018-12-14] MEDS ORDERED: EPHEDRINE SULFATE INJ 50 MG/10 ML SYR ONE (13:57)
[2018-12-14] MEDS ORDERED: MORPHINE SULFATE INJ 10 MG/ML ONE ×2 (14:04→18:21)
[2018-12-14] MEDS ORDERED: MIDAZOLAM HCL 2 MG/2 ML VIAL ONE (14:04)
[2018-12-14] MEDS ORDERED: FENTANYL CITRATE/PF 100MCG/2 ML INJ ONE (14:04)
[2018-12-14] MEDS ORDERED: ONDANSETRON HCL INJ 2MG/ML 2ML 2 MG/ML VIAL IV PRN (16:15)
[2018-12-14] MEDS ORDERED: NALOXONE HCL INJ 0.4 MG/ML AMP IV PRN (16:15)
[2018-12-14] MEDS ORDERED: MORPHINE SULFATE 1 MG/ML 30ML PCA IV PRN (16:15)
[2018-12-14] MEDS ORDERED: DIPHENHYDRAMINE HCL 25 MG CAP PO PRN (16:15)
--- OUTSIDE RECORDS SUMMARY | 2018-12-14 16:25 | XMS REPORT | Clinical Summary ---
Author Author [facility] Address Unknown Phone Unavailable Care Team Providers Care Dtp Operator Name Role Phone Asked, No Pcp PCP [...] Comments Vital Sign 143/75 06/25/2018 11:44 AM CHILD DEVELOPMENT PROFESSOR Blood Pressure 72 06/25/2018 11:44 AM CHILD DEVELOPMENT PROFESSOR Pulse 36 C (96.8 F) 06/25/2018 11:44 AM CHILD DEVELOPMENT PROFESSOR Temperature 18 06/25/2018 11:44 AM CHILD DEVELOPMENT PROFESSOR Respiratory Rate 98% 06/25/2018 11:44 AM CHILD DEVELOPMENT PROFESSOR Oxygen Saturation - - Inhaled Oxygen Concentration 103 kg (228 lb) 06/24/2018 4:34 PM CHILD DEVELOPMENT PROFESSOR Weight 175.3 cm (5' 9") 06/24/2018 4:34 PM CHILD DEVELOPMENT PROFESSOR Height 33.67 06/24/2018 4:34 PM CHILD DEVELOPMENT PROFESSOR Body Mass Index Plan of Treatment Health Maintenance Due Date Last Done Comments COLONOSCOPY SCREENING 2002 SHINGLES VACCINES (#1) 2002 INFLUENZA VACCINE 11/26/2018 65+ PNEUMOCOCCAL VACCINE 06/25/2019 06/25/2018 (2 of 2 - PPSV23) Implants Device Identifier Shelf Expiration Date Model / Serial / Lot Implanted Type Area Manufactur er 04/27/2023 1518 20 041 / / [id number] Attune Medial Dome Pat 41mm - IPM Right: Knee DEPUY [id number] IMPLANT ORTHOPAEDI Implanted: Qty: 1 on 06/24/2018 by DEVICES ENDY LEAL Robin N., MD at [facility] 05/28/2027 [id number] / / [id number] Attune Fb Tib Base Sz 9 Wyatt - IPM Right: Knee DEPUY [id number] IMPLANT ORTHOPAEDI Implanted: Qty: 1 on 06/24/2018 by DEVICES ENDY LEAL Robin N., MD at [facility] 04/27/2022 [id number] / / [id number] Attune Fb Knee Insert Attune Ps Fb IPM Right: Knee DEPUY Insrt Sz 9 7mm - [id number] IMPLANT ORTHOPAEDI Implanted: Qty: 1 on 06/24/2018 by DEVICES ENDY LEAL Robin N., MD at [facility] [id number] / / Attune Fb Knee Femur Attune Ps Fem IPM DEPUY Rt Sz 9 Wyatt - [id number] IMPLANT ORTHOPAEDI Implanted: Qty: 1 on 06/24/2018 by DEVICES ENDY LEAL Robin N., MD at [facility] 10/26/2019 [id number] / / [id number] Cement Bone Hiviscocty 40gr Surgical Right: Knee DEPUY Smartset - [id number] Bone ORTHO Implanted: Qty: 2 on 06/24/2018 by Mo Bowers MD at [facility] Procedures Comments Procedure Name Priority Date/Time Associated Diagnosis POC GLUCOSE Routine 06/25/2018 12:07 PM CHILD DEVELOPMENT PROFESSOR POC GLUCOSE Routine 06/25/2018 7:17 AM CHILD DEVELOPMENT PROFESSOR ESTIMATED GFR Routine 06/25/2018 3:26 AM CHILD DEVELOPMENT PROFESSOR BASIC METABOLIC PANEL Routine 06/25/2018 3:26 AM CHILD DEVELOPMENT PROFESSOR HEMOGLOBIN & HEMATOCRIT Routine 06/25/2018 3:26 AM CHILD DEVELOPMENT PROFESSOR POC GLUCOSE Routine 06/24/2018 9:47 PM CHILD DEVELOPMENT PROFESSOR POC GLUCOSE Routine 06/24/2018 4:02 PM CHILD DEVELOPMENT PROFESSOR XR KNEE 1 OR 2 VW RIGHT Routine 06/24/2018 12:58 PM CHILD DEVELOPMENT PROFESSOR POC GLUCOSE Routine 06/24/2018 12:05 PM CHILD DEVELOPMENT PROFESSOR CA AN ELECTIVE Routine 06/24/2018 SUPRAGLOTTIC AIRWAY 10:56 AM CHILD DEVELOPMENT PROFESSOR Procedure Note - Manuelito Mas CRNA - 06/24/2018 10:56 AM CHILD DEVELOPMENT PROFESSOR Airway Date/Time: 06/24/2018 10:35 AM Performed by: [...] 06/24/2018 Arthritis of right knee 10:30 AM CHILD DEVELOPMENT PROFESSOR POC GLUCOSE Routine 06/24/2018 10:30 AM CHILD DEVELOPMENT PROFESSOR URINE CULTURE Routine 06/15/2018 2:40 PM CHILD DEVELOPMENT PROFESSOR ESTIMATED GFR Routine 06/15/2018 2:35 PM CHILD DEVELOPMENT PROFESSOR TYPE AND SCREEN Routine 06/15/2018 Preoperative testing 2:35 PM CHILD DEVELOPMENT PROFESSOR URINALYSIS SCREEN AND Routine 06/15/2018 Preoperative testing MICROSCOPY, WITH REFLEX 2:35 PM CHILD DEVELOPMENT PROFESSOR TO CULTURE HEMOGLOBIN A1C Routine 06/15/2018 Preoperative testing 2:35 PM CHILD DEVELOPMENT PROFESSOR PROTHROMBIN TIME WITH INR Routine 06/15/2018 Preoperative testing 2:35 PM CHILD DEVELOPMENT PROFESSOR PARTIAL THROMBOPLASTIN Routine 06/15/2018 Preoperative testing TIME (PTT) 2:35 PM CHILD DEVELOPMENT PROFESSOR COMPREHENSIVE METABOLIC Routine 06/15/2018 Preoperative testing PANEL 2:35 PM CHILD DEVELOPMENT PROFESSOR HC COMPLETE BLD COUNT Routine 06/15/2018 Preoperative testing W/AUTO DIFF 2:35 PM CHILD DEVELOPMENT PROFESSOR ECG 12-LEAD Routine 06/15/2018 Preoperative testing 2:31 PM CHILD DEVELOPMENT PROFESSOR POC GLUCOSE Routine 04/15/2018 9:27 AM CHILD DEVELOPMENT PROFESSOR HEMOGLOBIN A1C STAT 04/15/2018 8:51 AM CHILD DEVELOPMENT PROFESSOR POC GLUCOSE Routine 04/15/2018 8:05 AM CHILD DEVELOPMENT PROFESSOR POC GLUCOSE Routine 04/15/2018 6:41 AM CHILD DEVELOPMENT PROFESSOR POC GLUCOSE Routine 04/15/2018 6:39 AM CHILD DEVELOPMENT PROFESSOR TYPE AND SCREEN Routine 03/27/2018 Preop testing 10:54 AM CHILD DEVELOPMENT PROFESSOR after 12/13/2017 Results * POC glucose (06/25/2018 12:07 PM CHILD DEVELOPMENT PROFESSOR) Only the most recent of 10 results within the time period is included. [facility] POC glucose 174 (H) 65 - 99 mg/dL [facility] Comment: [facility] Notified RN HOSPITAL Meter ID: [id number] Marketing Teacher: Mau Gooden Specimen Performing Organization Address City/State/Zipcode Phone Number [facility] [address] [facility] [address] [place] [address] PATHOLOGY AND GENOMIC MEDICINE [facility] [address] [place] [id number] HOSPITAL * Estimated GFR (06/25/2018 3:26 AM CHILD DEVELOPMENT PROFESSOR) Only the most recent of 2 results within the time period is included. [facility] Estimated GFR 75 mL/min/1.73 m2 [facility] Comment: [facility] rpretation G1 >=90 Normal or high G2 60-89Mildly decreased [id number] Mildly to moderately decreased F2a50-32 Moderately to severely decreased G4 15-29Severely decreased G5 <15Kidney failure The eGFR was calculated using the Chronic Kidney Disease Epidemiology Collaboration (CKD-EPI) equation. Interpretation is based on recommendations of the National Kidney Foundation-Kidney Disease Outcomes Quality Initiative (NKF-KDOQI) published in 2014. Specimen Plasma specimen Performing Organization Address City/[facility] Phone Number [facility] [place] [address] PATHOLOGY AND [facility] MEDICINE [address] * Hemoglobin & hematocrit (06/25/2018 3:26 AM CHILD DEVELOPMENT PROFESSOR) [facility] HGB 12.8 (L) 14.0 - 18.0 g/dL [facility] HCT 39.1 (L) 41.0 - 51.0 % [facility] Specimen Blood Performing Organization Address [facility] Phone [facility] [place] [address] PATHOLOGY AND [facility] MEDICINE [address] * Basic metabolic panel (06/25/2018 3:26 AM CHILD DEVELOPMENT PROFESSOR) [facility] Sodium 137 135 - 148 mEq/L [facility] Potassium 4.4 3.5 - 5.0 mEq/L [facility] Chloride 99 98 - 112 mEq/L [facility] CO2 21 (L) 24 - 31 mEq/L [facility] Anion gap 17@ANIO (H) 7 - 15 mEq/L [facility] BUN 16 8 - 23 mg/dL [facility] Creatinine 1.03 0.70 - 1.20 mg/dL [facility] Glucose 163 (H) 65 - 99 mg/dL [facility] Calcium 9.2 8.8 - 10.2 mg/dL [facility] Specimen Plasma specimen Performing Organization Address [facility] Phone Number [facility] [place] [address] PATHOLOGY AND [facility] MEDICINE [address] * XR Knee 1 Or 2 Vw Right (06/24/2018 12:58 PM CHILD DEVELOPMENT PROFESSOR) Specimen Narrative Performed At EXAMINATION: XR KNEE 1 OR 2 VW RIGHT [facility] INDICATION: total knee arthoplasty COMPARISON: None IMPRESSION: 2 views of the right knee were obtained which demonstrate expected postoperative changes following total knee arthroplasty with appropriate implant alignment. [facility]-[id number] Procedure Note Interface, Radiology Results Incoming - 06/24/2018 1:54 PM CHILD DEVELOPMENT PROFESSOR EXAMINATION: XR KNEE 1 OR 2 VW RIGHT INDICATION: total knee arthoplasty COMPARISON: None IMPRESSION: 2 views of the right knee were obtained which demonstrate expected postoperative changes following total knee arthroplasty with appropriate implant alignment. [facility]-[id number] Performing Organization Address City/State/Zipcode Phone Number [facility] [address] [place] [address] * Urine culture (06/15/2018 2:40 PM CHILD DEVELOPMENT PROFESSOR) Urine culture SEE COMMENTComment: [facility] Bacteriuria screen negative. [facility] Specimen Performing Organization Address [facility] Phone Number [facility] DEPARTMENT OF [address] [place] [address] PATHOLOGY [place] [address] HOSPITAL * Urinalysis screen and microscopy, with reflex to culture (06/15/2018 2:35 PM CHILD DEVELOPMENT PROFESSOR) Specimen site Clean catch [facility] Color, UA Yellow [facility] Appearance, UA Clear [facility] Specific 1.020 1.001 - 1.035 [facility] gravity, [facility] pH, UA 5.0 5.0 - 8.5 [facility] Protein, UA Negative Negative [facility] Glucose, UA Negative Negative [facility] Ketones, UA Negative Negative [facility] Bilirubin, UA Negative Negative [facility] Blood, UA Negative Negative [facility] Nitrite, UA Negative Negative [facility] Urobilinogen, <2.0 <2.0 [facility] Leukocyte Negative Negative [facility] esterase, [facility] WBC, UA 1 0 - 1 /HPF [facility] RBC, UA 2 0 - 5 /HPF [facility] Bacteria, UA None seen None seen [facility] Yeast, UA None seen [facility] Yeast with None seen [facility] pseudohyphae, [facility] Specimen Urine Performing Organization Address City/[facility] Phone Number [facility] DEPARTMENT OF [address] [place] [address] PATHOLOGY AND GENOMIC MEDICINE [address] * Partial thromboplastin time, activated (06/15/2018 2:35 PM CHILD DEVELOPMENT PROFESSOR) [facility] PTT 37.9 (H) 23.0 - 36.0 sec [facility] Comment: [facility] PTT therapeutic range for HOSPITAL unfractionated heparin is 61.0-112.0 seconds which corresponds to Anti-Xa 0.3-0.7 U/ml. Specimen Blood Performing Organization Address City/[facility]/Zipcode Phone Number [facility] DEPARTMENT OF [address] [place] [address] PATHOLOGY AND [facility] MEDICINE [address] * Prothrombin time with INR (06/15/2018 2:35 PM CHILD DEVELOPMENT PROFESSOR) [facility] Prothrombin 14.0 11.5 - 14.5 sec [facility] INR 1.1 [facility] Comment: [facility] The International Normalized HOSPITAL Ratio (INR) is a therapeutic monitoring tool for patients who are stable on oral anticoagulant therapy. An INR of 2.0-3.0 is suggested for deep vein thrombosis/pulmonary embolism. Specimen Blood Performing Organization Address City/[facility] Phone Number [facility] DEPARTMENT OF [address] [place] [address] PATHOLOGY AND [facility] MEDICINE [address] * CBC with platelet and differential (06/15/2018 2:35 PM CHILD DEVELOPMENT PROFESSOR) [facility] WBC 5.92 4.50 - 11.00 k/uL [facility] RBC 4.58 4.40 - 6.00 m/uL [facility] HGB 13.9 (L) 14.0 - 18.0 g/dL [facility] HCT 43.3 41.0 - 51.0 % [facility] MCV 94.5 82.0 - 100.0 fL [facility] MCH 30.3 27.0 - 34.0 pg [facility] MCHC 32.1 31.0 - 37.0 g/dL [facility] RDW - SD 42.9 37.0 - 55.0 fL [facility] MPV 10.2 8.8 - 13.2 fL [facility] Platelet count 230 150 - 400 k/uL [facility] Nucleated RBC 0.00 /100 WBC [facility] Neutrophils 60.7 39.0 - 69.0 % [facility] Lymphocytes 28.7 25.0 - 45.0 % [facility] Monocytes 6.6 0.0 - 10.0 % [facility] Eosinophils 3.2 0.0 - 5.0 % [facility] Basophils 0.5 0.0 - 1.0 % [facility] Immature 0.3Comment: "Immature 0.0 - 1.0 % [facility] granulocytes granulocytes" (promyelocytes, S[facility]IANISM myelocytes, metamyelocytes) [facility] Specimen Blood Performing Organization Address City/[facility] Phone Number [facility] [place] [address] PATHOLOGY AND GENOMIC MEDICINE [address] * Type and screen (06/15/2018 2:35 PM CHILD DEVELOPMENT PROFESSOR) Only the most recent of 2 results within the time period is included. ABO grouping B [facility] Rh type POS [facility] Antibody screen NEG [facility] (gel) [facility] Specimen Blood Performing Organization Address City/[facility] Phone Number [facility] [place] [address] PATHOLOGY AND GENOMIC MEDICINE [address] * Hemoglobin A1c (06/15/2018 2:35 PM CHILD DEVELOPMENT PROFESSOR) Only the most recent of 2 results within the time period is included. Hemoglobin A1C 7.7 (H) 4.0 - 5.6 % [facility] Comment: [facility] HbA1c cutoffs for diagnosing HOSPITAL diabetes: 4.0% - 5.6%=normal 5.7% - 6.4%=increased risk for diabetes (prediabetes) >=6.5%=diabetes Goals for glycemic control (ADA 2016) < 7.0%Target for non adults with diabetes. More or less stringent targets may be appropriate for individual patients. <7.5% Target for Children and adolescents with type 1 diabetes. Specimen Blood Performing Organization Address City/State/Zipcode Phone Number [facility] DEPARTMENT OF [address] [place] [address] PATHOLOGY AND GENOMIC MEDICINE [address] * Comprehensive metabolic panel (06/15/2018 2:35 PM CHILD DEVELOPMENT PROFESSOR) Sodium 141 135 - 148 mEq/L [facility] Potassium 4.0 3.5 - 5.0 mEq/L [facility] Chloride 101 98 - 112 mEq/L [facility] CO2 23 (L) 24 - 31 mEq/L [facility] Anion gap 17@ANIO (H) 7 - 15 mEq/L [facility] BUN 15 8 - 23 mg/dL [facility] Creatinine 0.95 0.70 - 1.20 mg/dL [facility] Glucose 217 (H) 65 - 99 mg/dL [facility] Calcium 9.3 8.8 - 10.2 mg/dL [facility] Protein 7.8 6.3 - 8.3 g/dL [facility] Comment: [facility] 4.6-7.0 g/dL 1 week 4.4-7.6 g/dL 7 months-1year 5.1-7.3 g/dL 1-2 years5.6-7 .5 g/dL >3 years6.0-8 .0 g/dL 18-150 6.3-8.3 g/dL Albumin 4.2 3.5 - 5.0 g/dL [facility] A/G ratio 1.2 0.7 - 3.8 [facility] Alkaline 70 40 - 129 U/L [facility] phosphatase [facility] AST 33 10 - 50 U/L [facility] ALT 47 5 - 50 U/L [facility] Total bilirubin 0.4 0.0 - 1.2 mg/dL [facility] Specimen Plasma specimen Performing Organization Address City/State/Zipcode Phone Number [facility] DEPARTMENT OF [address] [place] [address] PATHOLOGY [place] [address] HOSPITAL * ECG 12 lead (06/15/2018 2:31 PM CHILD DEVELOPMENT PROFESSOR) Ventricular 65 [facility]USE rate Atrial rate 65 [facility] CA interval 210 [facility] QRSD interval 94 [facility] QT interval 394 [facility] QTC interval 409 [facility] MUSE P axis 1 51 [facility] QRS axis 1 61 [facility] T wave axis 74 [facility] M[facility] EKG impression Sinus rhythm with 1st degree [facility] M[facility] AV block-Otherwise normal ECG-No previous ECGs available- Specimen Narrative Performed At Performing Organization Address City/State/Zipcode Phone Number [facility] MUSE [address] [place] [address] after 12/13/2017 Insurance Type Payer Benefit Subscriber ID Effective Phone Address Plan / Dates Group HMO AETNA MEDICARE AETNA xxxxxxxx 2018- MEDICARE Present HMO/PPO MCR Workers Comp WORKERS COMP TRAVELERS xxxxxxx 2017- Present Advance Directives For more information, please contact: [phone] Patient Community Educator Explanation Type Date Recorded Advance Directives, 10/23/2017 1:32 PM Living Will and Medical Power of [place] Maker
[2018-12-14] MEDS ORDERED: HYDROMORPHONE 2MG/ML 2 MG/ML ML ONE ×2 (16:42→17:07)
[2018-12-14] MEDS ORDERED: ONDANSETRON HCL INJ 2MG/ML 2ML 2 MG/ML VIAL ONE (17:07)
[2018-12-14] MEDS ORDERED: MORPHINE SULFATE 1 MG/ML 30ML PCA ONE (17:18)
[2018-12-14] MEDS ORDERED: MORPHINE SULFATE INJ 4 MG/ML INJ 1ML ONE (17:18)
[2018-12-14] MEDS ORDERED: PROMETHAZINE HCL (IM) 25 MG/ML VIAL ONE (17:21)
--- NOTE | 2018-12-14 18:26 | NUR ---
RECEIVED REPORT FROM JULY IN PACU AWAITING FOR PT TO ARRIVE TO FLOOR
[2018-12-14 18:58] VITALS: BP 125/68
--- NOTE | 2018-12-14 19:15 | NUR ---
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
[2018-12-14] MEDS: SOD CHL 0.45%/POT CHL 20MEQ 1,000 ML IV SCH (19:22)
[2018-12-14 20:00] VITALS: BP 137/66
[2018-12-14 20:10] VITALS: BP 125/68
[2018-12-14 21:00] VITALS: BP 137/66
[2018-12-14 21:11] LABS: BASOPHILS % 0.2 % (0.0-1.0); EOSINOPHILS % 0.1 % (0.0-6.0); HEMATOCRIT 36.1 % (38.2-49.6); HEMOGLOBIN 12.1 g/dL (14.0-18.0); LYMPHOCYTES # (AUTO) 0.6 (1.0-3.2); LYMPHOCYTES % 6.4 % (18.0-39.1); MEAN CORPUSCULAR HEMOGLOBIN 30.5 pg (28-32); MEAN CORPUSCULAR HGB CONC 33.5 g/dL (31-35); MEAN CORPUSCULAR VOLUME 90.9 fL (81-99); MONOCYTES # (AUTO) 0.5 (0.2-0.8); NEUTROPHILS # (AUTO) 8.8 (2.1-6.9); NEUTROPHILS % 87.8 % (38.7-80.0); PLATELET COUNT 172 x10e3/uL (140-360); RED BLOOD COUNT 3.97 x10e6/uL (4.3-5.7); RED CELL DISTRIBUTION WIDTH 13.4 % (11.7-14.4)
[2018-12-14 21:23] LABS: ANION GAP 13.4 mmol/L (8-16); BLOOD UREA NITROGEN 19 mg/dL (7-26); BUN/CREATININE RATIO 20 (6-25); CALCIUM 7.9 mg/dL (8.4-10.2); CARBON DIOXIDE 23 mmol/L (22-29); CHLORIDE 105 mmol/L (98-107); CREATININE, SERUM 0.93 mg/dL (0.72-1.25); EST GLOMERULAR FILTRATION RATE > 60 ML/MIN (60-); GLUCOSE 144 mg/dL (74-118); POTASSIUM 4.4 mmol/L (3.5-5.1); SODIUM 137 mmol/L (136-145)
[2018-12-14] MEDS: DOCUSATE SODIUM 100 MG CAP PO SCH (21:40)
[2018-12-14 23:27] VITALS: BP 132/71
[2018-12-15] VITALS (7 sets, daily range): BP systolic 110–118; BP diastolic 56–62
--- NOTE | 2018-12-15 01:40 | NUR ---
DRESSING SATURATED WITH BLOOD. CHANGED.KEEP MONITOR THE PT.
[2018-12-15] MEDS: SOD CHL 0.45%/POT CHL 20MEQ 1,000 ML IV SCH ×3 (01:45→21:36)
--- NOTE | 2018-12-15 05:00 | NUR ---
ABD PAD CHANGED.MODERATE BLEEDING NOTED.
[2018-12-15 06:23] LABS: BASOPHILS % 0.2 % (0.0-1.0); EOSINOPHILS % 0.1 % (0.0-6.0); HEMATOCRIT 34.2 % (38.2-49.6); HEMOGLOBIN 11.5 g/dL (14.0-18.0); LYMPHOCYTES # (AUTO) 1.2 (1.0-3.2); LYMPHOCYTES % 11.6 % (18.0-39.1); MEAN CORPUSCULAR HEMOGLOBIN 30.5 pg (28-32); MEAN CORPUSCULAR HGB CONC 33.6 g/dL (31-35); MEAN CORPUSCULAR VOLUME 90.7 fL (81-99); MONOCYTES # (AUTO) 0.9 (0.2-0.8); MONOCYTES % 8.4 % (4.4-11.3); NEUTROPHILS # (AUTO) 8.5 (2.1-6.9); NEUTROPHILS % 79.1 % (38.7-80.0); PLATELET COUNT 170 x10e3/uL (140-360); RED BLOOD COUNT 3.77 x10e6/uL (4.3-5.7); RED CELL DISTRIBUTION WIDTH 13.4 % (11.7-14.4)
[2018-12-15 06:45] LABS: ANION GAP 10.3 mmol/L (8-16); BLOOD UREA NITROGEN 15 mg/dL (7-26); BUN/CREATININE RATIO 17 (6-25); CALCIUM 7.9 mg/dL (8.4-10.2); CARBON DIOXIDE 25 mmol/L (22-29); CHLORIDE 103 mmol/L (98-107); CREATININE, SERUM 0.87 mg/dL (0.72-1.25); EST GLOMERULAR FILTRATION RATE > 60 ML/MIN (60-); GLUCOSE 131 mg/dL (74-118); POTASSIUM 4.3 mmol/L (3.5-5.1); SODIUM 134 mmol/L (136-145)
--- NOTE | 2018-12-15 07:00 | NUR ---
bed side shift report received from cnc machinist 2nd shift rn. pt resting comfortably in bed. will continue to monitor.
--- NOTE | 2018-12-15 07:00 | NUR ---
Bed side shift report given to the oncoming rn.stable condition.
--- NOTE | 2018-12-15 07:15 | NUR ---
BEDSIDE SHIFT REPORT RECEIVED PT DENEIS PAIN AT THIS TIME, LALA TO BSD WITH BLUEISH URINE NOTED, UPDATED ON POC VOICED UNDERSTANDING, CALL LIGHT IN REACH WILL CONTINUE TO MONITOR
[2018-12-15] MEDS: DOCUSATE SODIUM 100 MG CAP PO SCH ×2 (09:15→17:12)
--- NOTE | 2018-12-15 09:25 | NUR ---
dressing change completed, moderate amount of pink-colored fluid noted on ABD pad. replaced with new ABD pad. will continue to monitor.
[2018-12-15] MEDS ORDERED: DEXTROSE 50% SYRINGE 50 ML IV PRN (10:00)
[2018-12-15] MEDS: METFORMIN HCL 500 MG TAB CR PO SCH (12:15)
[2018-12-15] MEDS ORDERED: ONDANSETRON HCL 4 MG ORAL DISINTEGRATING TAB PO PRN (12:15)
[2018-12-15] MEDS: SITAGLIPTIN 100 MG TAB PO SCH (12:20)
[2018-12-15] MEDS: OMEGA 3 POLYUNSAT FATTY ACIDS 1000 MG SOFTGEL PO SCH (12:21)
[2018-12-15] MEDS: INSULIN LISPRO 100 UNIT/1 ML 3ML VIAL SQ SCH ×3 (12:21→20:41)
[2018-12-15] MEDS: PIPER-TAZ 3.375 GM 50 ML IV SCH ×2 (15:20→21:35)
--- NOTE | 2018-12-15 15:20 | NUR ---
dressing to sacrum changed, moderate amount of pink-colored drainage from aster drain noted. will continue to monitor.
[2018-12-15] MEDS: LISINOPRIL 10 MG TAB PO SCH (17:16)
--- NOTE | 2018-12-15 18:15 | NUR ---
dressing change completed to sacrum, replaced ABD pad, moderate amount of pink drainage noted. will continue to monitor
--- NOTE | 2018-12-15 18:30 | NUR ---
SPOKE WITH DR TERRAZAS RE: PATIENT CO PAIN TO GROIN, BULGE NOTED TO GROIN, AND BLADDER SCANNED OF 11CC NOTED, PT DENIES BLADDER SPASMS AT THIS TIME, NEW ORDERS NOTED.
--- NOTE | 2018-12-15 19:07 | NUR ---
bedside report given to oncoming operation shift supervisor nurse. pt in stable condition.
--- NOTE | 2018-12-15 19:28 | NUR ---
Bed side shift report taken from morning staff Sari.patient is lyeing in the bed.stable condition.
[2018-12-15] MEDS: ATORVASTATIN 20 MG TAB PO SCH (20:41)
[2018-12-16] VITALS (8 sets, daily range): BP systolic 109–145; BP diastolic 55–71
--- NOTE | 2018-12-16 00:43 | NUR ---
DRESSING CHANGED.NO ABDOMINAL PAIN VOICED.LALA CARE GIVEN.BED LOCKED AND IN LOWEST POSITION.PHONE AND CALL LIGHT WITHIN REACH.INSTRUCTE D TO CALL FOR ASSISTANCE NEEDED.
[2018-12-16] MEDS: PIPER-TAZ 3.375 GM 50 ML IV SCH ×3 (05:35→21:37)
--- NOTE | 2018-12-16 06:21 | NUR ---
Assisted to ambulate in the room.dressing changed.pt tolerated well.back to bed safely.
[2018-12-16 06:47] LABS: BASOPHILS % 0.4 % (0.0-1.0); EOSINOPHILS # (AUTO) 0.2 (0.0-0.4); EOSINOPHILS % 2.6 % (0.0-6.0); HEMATOCRIT 32.8 % (38.2-49.6); HEMOGLOBIN 10.8 g/dL (14.0-18.0); LYMPHOCYTES # (AUTO) 2.1 (1.0-3.2); LYMPHOCYTES % 24.4 % (18.0-39.1); MEAN CORPUSCULAR HEMOGLOBIN 30.8 pg (28-32); MEAN CORPUSCULAR HGB CONC 32.9 g/dL (31-35); MEAN CORPUSCULAR VOLUME 93.4 fL (81-99); MONOCYTES # (AUTO) 1.1 (0.2-0.8); NEUTROPHILS % 59.2 % (38.7-80.0); PLATELET COUNT 138 x10e3/uL (140-360); RED BLOOD COUNT 3.51 x10e6/uL (4.3-5.7); RED CELL DISTRIBUTION WIDTH 13.5 % (11.7-14.4)
[2018-12-16 06:58] LABS: ANION GAP 10.2 mmol/L (8-16); BLOOD UREA NITROGEN 11 mg/dL (7-26); BUN/CREATININE RATIO 12 (6-25); CARBON DIOXIDE 27 mmol/L (22-29); CHLORIDE 104 mmol/L (98-107); CREATININE, SERUM 0.93 mg/dL (0.72-1.25); EST GLOMERULAR FILTRATION RATE > 60 ML/MIN (60-); GLUCOSE 98 mg/dL (74-118); POTASSIUM 4.2 mmol/L (3.5-5.1); SODIUM 137 mmol/L (136-145)
--- NOTE | 2018-12-16 07:00 | NUR ---
bedside rounds complete no distress noted, updated on poc voiced understanding, co pain 2/10 table games dealer pump on demand, ivf infusing to l fa 20g no ss of infiltration noted, mcfadden to bsd with greenish yellowish urine noted, no other co vocied call light in reach will continue to monitor
--- NOTE | 2018-12-16 07:11 | NUR ---
Bed side shift report given to the oncoming rn.walking rounds done.
[2018-12-16] MEDS: INSULIN LISPRO 100 UNIT/1 ML 3ML VIAL SQ SCH ×4 (07:30→20:22)
[2018-12-16] MEDS: METFORMIN HCL 500 MG TAB CR PO SCH (08:36)
[2018-12-16] MEDS: OMEGA 3 POLYUNSAT FATTY ACIDS 1000 MG SOFTGEL PO SCH (08:36)
[2018-12-16] MEDS: SITAGLIPTIN 100 MG TAB PO SCH (08:36)
[2018-12-16] MEDS: DOCUSATE SODIUM 100 MG CAP PO SCH ×2 (08:36→16:55)
[2018-12-16] MEDS: CHOLECALCIFEROL PO SCH (08:36)
[2018-12-16] MEDS: LISINOPRIL 10 MG TAB PO SCH ×2 (08:36→16:56)
[2018-12-16] MEDS: SOD CHL 0.45%/POT CHL 20MEQ 1,000 ML IV SCH (10:55)
--- NOTE | 2018-12-16 11:11 | NUR ---
EDUCATED ABOUT IMM SIGNED FILED IN CHART AND LEFT COPY WITH PT BEDSIDE WITH CARD FOR ANY FURTHER QUESTIONS
--- NOTE | 2018-12-16 11:53 | Diagnostic Imaging Report ---
Abdomen, 2 views, with upright chest. History: Abdominal pain. Findings: Cardiac silhouette and pulmonary vessels are normal. Right upper lobe scarring is noted. The lungs are otherwise clear. Dilated air-filled colon is present to the region of the pelvis with several air-fluid levels noted proximally. Air is noted in the region of the left groin. There is no evidence of free air. Surgical clips are noted in the midline of the pelvis suggestive of prostatectomy. There are no masses or abnormal calcifications. The osseous structures are intact. IMPRESSION: 1. No pulmonary abnormality. 2. Findings concerning for distal colonic obstruction, possibly secondary to incarcerated left inguinal hernia. Consider further evaluation with CT. Signed by: Wei Singh on 12/16/2018 11:49 AM
--- NOTE | 2018-12-16 12:23 | NUR ---
SPOKE WITH DR QUINTANA, RE: ABDOMEN RESULTS, NEW ORDERS NOTED
[2018-12-16] MEDS ORDERED: DIATRIZOATE MEGL/DIATRIZOA SOD 30 ML BTL PO ONE (12:42)
--- NOTE | 2018-12-16 16:04 | Diagnostic Imaging Report ---
CT of the abdomen and pelvis, with contrast, 12/16/2018. History: Possible colonic obstruction. Comparison: Abdominal x-ray from earlier today. Technique: Multidetector CT scanning of the abdomen and pelvis was performed from the level of the lung bases to the inferior pubic rami after intravenous and oral administration of contrast. Coronal and sagittal multiplanar reformations were obtained. RADIATION DOSE: Total DLP: 818 mGy*cm Dose modulation, iterative reconstruction, and/or weight based adjustment of the mA/kV was utilized to reduce the radiation dose to as low as reasonably achievable. Discussion: LUNG BASES: There is bibasilar atelectasis. ABDOMEN: Simple cyst is noted in the lateral aspect of the right kidney. The liver, gallbladder, biliary tree, spleen, pancreas, adrenal glands, and left kidney are normal. The hepatic vein, portal vein, and splenic vein are patent. The abdominal aorta is enlarged measuring up to 3.4 cm distally. The stomach and small bowel are well-opacified and normal in diameter without evidence of wall thickening. The appendix is visualized and is normal. The colon is diffusely air-filled to the rectosigmoid colon. Large bilateral inguinal hernias are present, containing small bowel loop on the right and distal sigmoid colon on the left. There is no bowel wall thickening on either side. Air is present within the sigmoid colon beyond the level of the left inguinal hernia. There is no evidence of adenopathy or free fluid. PELVIS: A Oliver catheter is present within the bladder. Surgical clips are noted in the prostate. Surgical drain is noted extending from the prostate posteriorly. BONES AND SOFT TISSUES: Degenerative changes are present throughout the lumbar spine without evidence of lytic or sclerotic lesion. IMPRESSION: 1. Small bowel containing right inguinal hernia and large bowel containing left inguinal hernia. No evidence of small or large bowel obstruction. Air-filled prominence of the colon may be related to ileus. 2. Postoperative changes involving the prostate. 3. Infrarenal abdominal aortic aneurysm measuring up to 3.4 cm. Recommend follow-up every 3 years. Signed by: Wei Singh on 12/16/2018 4:00 PM
--- NOTE | 2018-12-16 17:00 | NUR ---
notified dr oshea re: ct abdomen results, no new orders at this time
[2018-12-16] MEDS ORDERED: PANTOPRAZOLE SOD 40 MG TABEC PO SCH (18:30)
[2018-12-16] MEDS ORDERED: HYDROMORPHONE 1MG/1ML INJ IV PRN (18:30)
--- NOTE | 2018-12-16 19:06 | NUR ---
BEDSIDE SHIFT REPORT PERFORMED, RECEIVED PT LAYING SEMI FOWLERS IN BED, AAOX3, RR EVEN AND NON-LABORED, O2 BY NC AT 2L. NO S/SX OF DISTRESS NOTED. PLAYGROUND SUPERVISOR DISCONTINUED WITH Maxine HOOK RN. LEFT PT LAYING SEMI FOWLERS IN BED, BED IN LOW LOCKED POSITION, SIDE RAILS UPX2, CALL LIGHT AND PHONE WITHIN REACH.
--- NOTE | 2018-12-16 20:25 | NUR ---
PAGE PALCED FOR MD Paulo QUINTANA CONCERNING PT REPORTS OF INDIGESTION. WAITING FOR CALLBACK.
--- NOTE | 2018-12-16 21:08 | NUR ---
SPOKE WITH MD Paulo QUINTANA CONCERNING PT REPORTS OF INDIGESTION. NEW ORDERS RECEIVED.
[2018-12-16] MEDS ORDERED: MAGNESIUM/ALUMINUM/SIMETHICONE 30 ML UDC PO NR (21:15)
[2018-12-16] MEDS ORDERED: MAGNESIUM HYDROXIDE 30 ML UDC PO ONE (21:15)
[2018-12-16] MEDS: ATORVASTATIN 20 MG TAB PO SCH (21:36)
[2018-12-16] MEDS ORDERED: SODIUM CHLORIDE 0.9% 50ML 50 ML ONE (22:21)
[2018-12-16] MEDS ORDERED: IOPAMIDOL 370 MG/ML 200 ML INFUS..BTL INJ ONE (22:21)
[2018-12-17] VITALS (7 sets, daily range): BP systolic 128–152; BP diastolic 60–70
[2018-12-17] MEDS: SOD CHL 0.45%/POT CHL 20MEQ 1,000 ML IV SCH ×3 (00:48→20:50)
--- NOTE | 2018-12-17 00:48 | NUR ---
PAD TO PERINEUM CHANGED.
[2018-12-17] MEDS: PIPER-TAZ 3.375 GM 50 ML IV SCH ×3 (05:27→21:40)
[2018-12-17 06:22] LABS: BASOPHILS # (AUTO) 0.1 (0.0-0.1); BASOPHILS % 0.6 % (0.0-1.0); EOSINOPHILS # (AUTO) 0.2 (0.0-0.4); EOSINOPHILS % 2.9 % (0.0-6.0); HEMATOCRIT 34.2 % (38.2-49.6); HEMOGLOBIN 11.5 g/dL (14.0-18.0); LYMPHOCYTES # (AUTO) 1.4 (1.0-3.2); LYMPHOCYTES % 17.2 % (18.0-39.1); MEAN CORPUSCULAR HEMOGLOBIN 30.4 pg (28-32); MEAN CORPUSCULAR HGB CONC 33.6 g/dL (31-35); MEAN CORPUSCULAR VOLUME 90.5 fL (81-99); MONOCYTES % 12.1 % (4.4-11.3); NEUTROPHILS # (AUTO) 5.5 (2.1-6.9); NEUTROPHILS % 66.8 % (38.7-80.0); PLATELET COUNT 158 x10e3/uL (140-360); RED BLOOD COUNT 3.78 x10e6/uL (4.3-5.7); RED CELL DISTRIBUTION WIDTH 13.1 % (11.7-14.4)
[2018-12-17 06:43] LABS: BLOOD UREA NITROGEN 9 mg/dL (7-26); BUN/CREATININE RATIO 10 (6-25); CALCIUM 8.4 mg/dL (8.4-10.2); CARBON DIOXIDE 25 mmol/L (22-29); CHLORIDE 104 mmol/L (98-107); CREATININE, SERUM 0.89 mg/dL (0.72-1.25); EST GLOMERULAR FILTRATION RATE > 60 ML/MIN (60-); GLUCOSE 95 mg/dL (74-118); SODIUM 137 mmol/L (136-145)
--- NOTE | 2018-12-17 07:15 | NUR ---
Dr. Holden at bedside and removed aster drain at this time. removed one stitch and pulled drain. Patient tolerated well
[2018-12-17] MEDS: INSULIN LISPRO 100 UNIT/1 ML 3ML VIAL SQ SCH ×4 (07:30→20:50)
--- NOTE | 2018-12-17 07:31 | NUR ---
Received patient lying in bed. Respiration even and unlabored without SOB. Call light in reach.
[2018-12-17] MEDS: DOCUSATE SODIUM 100 MG CAP PO SCH ×2 (09:00→17:46)
[2018-12-17] MEDS: CHOLECALCIFEROL PO SCH (09:00)
[2018-12-17] MEDS: SITAGLIPTIN 100 MG TAB PO SCH (09:00)
[2018-12-17] MEDS: METFORMIN HCL 500 MG TAB CR PO SCH (09:00)
[2018-12-17] MEDS: OMEGA 3 POLYUNSAT FATTY ACIDS 1000 MG SOFTGEL PO SCH (09:00)
[2018-12-17] MEDS: LISINOPRIL 10 MG TAB PO SCH ×2 (09:00→17:47)
[2018-12-17] MEDS: PANTOPRAZOLE 40 MG 10ML VIAL IV SCH (09:51)
--- NOTE | 2018-12-17 11:21 | Diagnostic Imaging Report ---
Exam: Abdominal series Comparison: December 16, 2018 Clinical history: Ileus Findings: There is interval improvement in overall dilation of the small and large bowel loops with retained contrast throughout the colon. Air-fluid level is noted suggestive of ileus versus distal obstruction. There is no evidence of pneumoperitoneum. Degenerative changes are again noted throughout the lumbar spine. Impression: 1. Mild interval improvement in dilation of the bowel loops which may represent ileus versus distal obstruction. Signed by: Dr. Braulio Gupta MD on 12/17/2018 11:18 AM
--- NOTE | 2018-12-17 15:01 | NUR ---
Patient awake, alert. Lying in bed with eyes open. Dressing changed to perineum. Noted minimal amount of wound drainage noted on the dressing. Call light within reach.
--- NOTE | 2018-12-17 19:00 | NUR ---
BEDSIDE SHIFT REPORT PERFORMED, RECEIVED PT LAYING SEMI FOWLERS IN BED, AAOX3, RR EVEN AND NON-LABORED, ON ROOM AIR. NO S/SX OF DISTRESS NOTED. LALA DRAINING PINK URINE TO BEDSIDE BAG. LEFT PT LAYING SEMI FOWLERS IN BED, BED IN LOW LOCKED POSITION, SIDE RAILS UPX2, CALL LIGHT AND PHONE WITHIN REACH.
[2018-12-17] MEDS: ATORVASTATIN 20 MG TAB PO SCH (20:50)
--- NOTE | 2018-12-17 21:40 | NUR ---
Left arm IV discontinued. Catheter in place.
[2018-12-18] VITALS: BP 153/77
[2018-12-18 04:00] VITALS: BP 150/72
[2018-12-18] MEDS: SOD CHL 0.45%/POT CHL 20MEQ 1,000 ML IV SCH (04:36)
[2018-12-18] MEDS: PIPER-TAZ 3.375 GM 50 ML IV SCH (05:36)
[2018-12-18 06:34] LABS: BASOPHILS # (AUTO) 0.1 (0.0-0.1); BASOPHILS % 0.6 % (0.0-1.0); EOSINOPHILS # (AUTO) 0.3 (0.0-0.4); EOSINOPHILS % 3.4 % (0.0-6.0); HEMATOCRIT 35.1 % (38.2-49.6); HEMOGLOBIN 11.7 g/dL (14.0-18.0); LYMPHOCYTES # (AUTO) 2.1 (1.0-3.2); LYMPHOCYTES % 23.9 % (18.0-39.1); MEAN CORPUSCULAR HGB CONC 33.3 g/dL (31-35); MONOCYTES # (AUTO) 0.9 (0.2-0.8); MONOCYTES % 10.1 % (4.4-11.3); NEUTROPHILS # (AUTO) 5.5 (2.1-6.9); NEUTROPHILS % 61.7 % (38.7-80.0); PLATELET COUNT 193 x10e3/uL (140-360)
[2018-12-18 06:56] LABS: ANION GAP 13.9 mmol/L (8-16); BLOOD UREA NITROGEN 8 mg/dL (7-26); BUN/CREATININE RATIO 9 (6-25); CARBON DIOXIDE 25 mmol/L (22-29); CHLORIDE 106 mmol/L (98-107); CREATININE, SERUM 0.89 mg/dL (0.72-1.25); EST GLOMERULAR FILTRATION RATE > 60 ML/MIN (60-); GLUCOSE 119 mg/dL (74-118); POTASSIUM 3.9 mmol/L (3.5-5.1); SODIUM 141 mmol/L (136-145)
--- NOTE | 2018-12-18 07:05 | NUR ---
Received patient lying in bed with eyes closed. respiration even and unlabored without SOB. Call light in reach.
[2018-12-18] MEDS: INSULIN LISPRO 100 UNIT/1 ML 3ML VIAL SQ SCH (07:08)
[2018-12-18 07:40] VITALS: BP 141/85
[2018-12-18] MEDS: PANTOPRAZOLE 40 MG 10ML VIAL IV SCH (08:38)
[2018-12-18] MEDS: OMEGA 3 POLYUNSAT FATTY ACIDS 1000 MG SOFTGEL PO SCH (08:39)
[2018-12-18] MEDS: LISINOPRIL 10 MG TAB PO SCH (08:39)
[2018-12-18] MEDS: SITAGLIPTIN 100 MG TAB PO SCH (08:39)
[2018-12-18] MEDS: METFORMIN HCL 500 MG TAB CR PO SCH (08:39)
[2018-12-18] MEDS: DOCUSATE SODIUM 100 MG CAP PO SCH (08:40)
[2018-12-18] MEDS: CHOLECALCIFEROL PO SCH (08:41)
--- NOTE | 2018-12-18 08:41 | NUR ---
Patient awake, alert, lying in bed with HOB elevated. Respiration even and unlabored without SOB. Patient refused the Colace. Patient states " I have been having bowel movement multiple times" Call light within reach.
[2018-12-18 09:07] VITALS: BP 141/85
[2018-12-18] MEDS ORDERED: PANTOPRAZOLE SO40 MG PO (09:29)
[2018-12-18] MEDS ORDERED: TYLENOL # 31 EA PO (09:30)
[2018-12-18] MEDS ORDERED: LEVAQUIN500 MG PO (09:31)
[2018-12-18] MEDS ORDERED: COLACE100 MG PO (09:31)
--- NOTE | 2018-12-18 09:54 | NUR ---
Patient is to be discharge today per Doctor's order. Peripheral IV to right FA removed. Catheter intact. No bleeding noted.
[2018-12-18 11:16] VITALS: BP 157/78
--- NOTE | 2018-12-18 12:47 | NUR ---
EDUCATED ABOUT IMM, SIGNED, FILED IN CHART, WITH COPY LEFT WITH FAMILY AT BEDSIDE.
--- NOTE | 2018-12-18 13:22 | NUR ---
Patient is transported via wheelchair for discharge. respiration even and unlabored without SOB.
[2018-12-19] MEDS ORDERED: PANTOPRAZOLE SOD 40 MG TABEC PO SCH (07:30)
--- NOTE | 2018-12-22 04:27 | Operative Report ---
DATE OF PROCEDURE: 12/14/2018 SURGEON: Andrew Holden MD PREOPERATIVE DIAGNOSIS: Clinically localized prostate cancer. POSTOPERATIVE DIAGNOSIS: Clinically localized prostate cancer. OPERATION PERFORMED: Radical perineal prostatectomy. HOME STEREO EQUIPMENT INSTALLER: Danyel Holden MD COMPLICATIONS: None. CLINICAL SUMMARY: Zak Carreno is a 68-year-old man who was found to have prostate cancer. Options were discussed with the patient at length including once for awaiting hormonal therapy, external beam radiotherapy, brachytherapy with and without hormonal therapy in the neoadjuvant fashion. Also transurethral resection of the prostate was discussed prior to radiotherapy. The patient had carefully weighed the risks, benefits, and alternatives of various modalities and chose a radical prostatectomy. The patient desires to obtain the cancer control in the most expedient way and defers the utilization of hormonal therapy. He is aware of the risks of bleeding, infection, injury to adjacent structures, incontinence, impotence, incomplete cancer resection, need for additional procedures and modalities including hormone therapy and radiotherapy. He understood all these risks and elected to proceed. OPERATIVE PROCEDURE IN DETAIL: Informed consent was verified. Zak Carreno was properly identified, taken to the operating room, placed on the operating table in supine position. Anesthesia was uneventfully begun. The patient was very carefully, very gently, and very progressively placed in an exaggerated lithotomy position with all pressure points carefully well padded. His perineum was shaved. His abdomen, genitalia, perineum, and buttocks were prepared and draped in usual sterile fashion. A curvilinear incision was then made extending from just medial to each ischial tuberosity and with the apex being at the midpoint of the perineum. This incision was then carried through the layers of the perineum. Ischial rectal fossa was entered bilaterally. Incision was made in the midline. A subsphinteric approach was utilized. We progressively dissected until we reached the "pearly mcintyre". As we incised them, the apex of the prostate was visualized. We then proceeded with the prostate from the rectum through the layers of the non-villous fascia. Once the entire prostate was exposed posteriorly, we isolated the urethra and placed a vessel loop anterior to the membranous urethra. We then incised the posterior half of the urethra just distal to the apex of the prostate. The curved Lowsley retractor, which was utilized for initial retraction was then replaced with a straight [place]owsley retractor. The anterior half of the membranous urethra was then divided. We then proceeded with the anterior dissection, bringing the prostate down, and it from its overlying tissues. Once the entire bladder neck was exposed, the straight [place]owsley retractor was removed. A Oliver catheter was then placed overinflated. The balloon was then overinflated. We then proceeded with performing the bladder neck dissection utilizing the balloon as a land hazel. Once the bladder neck dissection was complete, we obtained margin biopsies at the level of the bladder neck to ensure no cancer was left behind. The prostate was large and a bladder neck reconstruction was necessary. Both ureteral orifices were identified in their normal anatomical position and were preserved throughout the case. We then placed interrupted 2-0 Monocryl sutures anteriorly after placing four anterior sutures and tying them down. We then proceeded with reconstruction of the posterior bladder neck. The posterior bladder neck was reconstructed with 2-0 Monocryl suture in interrupted urlesd-do-qdnur fashion until the bladder neck was of the appropriate size to match the urethra. We then completed the urethrovesical anastomosis with interrupted 2-0 Monocryl suture. A total of 13 sutures were utilized in interrupted fashion in order to complete this watertight anastomosis. Just prior to tying the final three sutures, the Oliver catheter was exchanged to a brand new Oliver catheter that is 22-Portuguese with a 10 mL balloon and filled to 18 mL with sterile water. Once the urethrovesical anastomosis was complete, copious irrigation was performed. We verified hemostasis. We placed that half-inch [place] drain in fashion such a way as to drain both lateral pedicle regions. It was secured to the left corner of the incision. The perineal body was reapproximated with heavy Vicryl suture in interrupted brmrfv-sl-mvhea fashion. Subcutaneous tissues were then approximated with interrupted 3-0 chromic suture and the skin was approximated with interrupted 3-0 chromic sutures in a vertical mattress fashion. Sterile dressings were applied. The patient was very carefully and gently repositioned in the supine position. The catheter was irrigated to and fro to ensure it worked properly, which it did. The patient was then uneventfully reversed from anesthesia and taken to recovery room in stable condition. There were no complications to the procedure. The patient tolerated the procedure well. Sponge, needle, and instrument counts were of course correct x2 at the end of the case. For estimated blood loss, please refer to the anesthetic record. We will plan to proceed with routine postoperative care and of course ongoing urological followup. Andrew Holden MD [place]/ARAMIS /[id number] cc: Robles Richardson MD
--- NOTE | 2019-01-12 17:02 | Discharge Summary ---
CHIEF COMPLAINT: Pain and blood sugar management, complains of pain in the lower abdomen. FINAL DIAGNOSES: 1. Status post prostatectomy. 2. Diabetes type 2. 3. Gastroesophageal reflux disease. DISPOSITION: Home. HOSPITAL COURSE: A 68-year-old male with known history of diabetes type 2, hypertension, hyperlipidemia, prostate CA, underwent a total prostatectomy, now being admitted for pain and blood sugar management along with pain in lower abdomen. No nausea or vomiting. No chest pain or shortness of breath, was reviewed further in the emergency room, studies were carried out. The patient was admitted to facility for treatment regarding status post prostatectomy, CA of prostate, diabetes type 2, hypertension, hyperlipidemia, will be addressing analgesic issues. Home medications will be continued. We will be monitoring and controlling the patient's blood sugars. Procedures on 12/14/2018, the date of admission was a radical perineal prostatectomy by Dr. Holden. Preoperative diagnosis was clinically localized prostate cancer. With admission to facility, the patient on the Med-Surg floor, was on a clear liquid diet, was on LOOM FIXER HELPER pain management. Laboratory studies were being watched closely, was on IV fluids. He was receiving a clear liquid diet, maintain on Oliver support. As the patient's stay was progressing, was resting comfortably, was in no acute distress. Diet was upgraded to an ADA soft diet, was now receiving piperacillin for antibiotic management. Continuing pain control procedures. Blood sugars continue to be managed, monitored closely. Shortly after his admission, he was also begin to complaints of abdominal distention, left groin pain and the abdomen was noted to be distended, somewhat tympanic. The patient underwent abdominal x-rays, continuing with his analgesic control. He was then being reviewed by General surgery with abdominal complaints with abdominal distention and the patient was evaluated by Dr. Cerna and following his review of the patient, reviewing x-rays as well. His assessment was: 1. Postop ileus, doubt obstruction. 2. Bilateral reducible inguinal hernias. 3. Status post perineal prostatectomy. 4. Diabetes. Plan is to switch the patient back to n.p.o. status. Continue IV hydration. Stop LOOM FIXER HELPER pain management. Continue to follow with further serial films of the abdomen. The patient will need surgical intervention for the hernias in the future when recovered from the prostate procedure. The patient began to feel better. His abdomen discomforts were improving, but has continued to have issues of indigestion. He is now being placed on PPIs. Oliver was continued. Dr. Holden discussed with the patient to have a followup cystogram in 2-3 weeks. The patient stabilized, was now receiving a full liquid diet, which he was tolerating well. He was released from the hospital per Urology as well as per General surgery. The patient was released home on 12/18/2018, in good condition. Followup chest x-ray abdomen series reveals no pulmonary abnormality. Findings concerning for distal colonic obstruction possibly secondary to incarcerated left inguinal hernia. Consider further evaluation on CT. So, abdomen and pelvis CT was performed in comparison to the previous procedure. The impression was small bowel containing right inguinal hernia, large bowel containing left inguinal hernia. No evidence of small or large bowel obstruction. Air-filled prominence of the colon may be related to this. Postoperative changes involve the prostate. Infrarenal abdominal aortic aneurysm measuring up to 3.4 cm. Recommend followup every 3 years. Final imaging study, repeat abdomen reveals mild interval improvement and dilatation of the small bowel loops, which may represent ileus versus distal obstruction. Laboratory studies shows a CBC revealed on initial panel within normal white cell count, H and H were stable. Followup CBCs were monitored closely. White blood cell counts remained stable. H and H fell to 10.8 and 32.8, final study was 11.7 and 35.1, platelets were stable. Chemistries shows initial electrolyte panel to be stable. Kidney functions were stable. Initial glucose 87, final glucose 164. Final electrolytes stable. Final kidney function stable. As mentioned, the patient improved in his overall care, was cleared for discharge, will be discharged home as mentioned. He will continue with his current diet. Continue with his Oliver, which will be addressed by Dr. Holden with his followup reviewed per his instruction. No equipments or supplies necessary. Activity level as directed by me as well as by Dr. Holden along with Dr. Cerna. The patient will return to my office within 2-[address] Holden's office as mentioned per his instruction. Following up with Dr. Cerna for discussion on the outpatient hernia repairs. The patient will be continuing on: 1. Tylenol No. 3 300 mg tablet one every 4 to 6 hours as needed for pain. 2. Atorvastatin calcium 20 mg p.o. at bedtime. 3. Vitamin D3 400 International Unit capsule daily. 4. Colace 100 mg p.o. b.i.d. 5. Levaquin 500 mg one tablet p.o. daily for 7 days. 6. Lisinopril 10 mg p.o. b.i.d. 7. Arp-3 fatty acid fish oil 1000 mg gel cap daily. 8. Protonix 40 mg one daily. 9. Janumet one tab p.o. daily. The patient develops any questions or concerns or any abdominal distention with urinary bleeding, he will be contacting Dr. Holden or he may return back to the emergency room. Dictated by ANSIR Rios Robles Richardson MD CC/MODL /[id number]
== END 2018-12-18 13:22 | disposition home or self-care (01) | DRG 707 ==
LOC: OR 11:00 → PACU V 16:06 → MED/SURG 18:40
PROC: 0VT00ZZ Resection of Prostate, Open Approach (ICD-10-PCS; principal; 2018-12-14 13:00)
DX: C61 Malignant neoplasm of prostate (principal); K56.7 Ileus, unspecified; E11.9 Type 2 diabetes mellitus without complications; I10 Essential (primary) hypertension; E78.5 Hyperlipidemia, unspecified; Z96.652 Presence of left artificial knee joint; K21.9 Gastro-esophageal reflux disease without esophagitis; K40.20 Bilateral inguinal hernia, without obstruction or gangrene, not specified as recurrent; E66.9 Obesity, unspecified; Z68.34 Body mass index [BMI] 34.0-34.9, adult; Z87.891 Personal history of nicotine dependence; Z79.84 Long term (current) use of oral hypoglycemic drugs
CPT/HCPCS: 36415; 74022; 74177; 80048; 82948; 83735; 85025; 86850; 86900; 88305; 88309; 88331; 88332; 93005; 93041; 96361; J1100; J1580; J2001; J2250; J2270; J2405; J2543; J2550; J3010; Q0162; Q9967

== ENCOUNTER → 2018-12-31 | Outpatient (CLI) | payer MEDICARE ==
[~2018-12-31] MED LIST changes: +COLACE100 MG PO; +LEVAQUIN500 MG PO; +PANTOPRAZOLE SO40 MG PO; +SODIUM CHLORIDE 0.9% 500ML 500 ML ONE; +TYLENOL # 31 EA PO
--- NOTE | 2018-12-31 17:13 | Diagnostic Imaging Report ---
EXAM: CT Cystogram of Pelvis INDICATION: Evaluation for bladder leak in postoperative setting. COMPARISON: CT abdomen and pelvis of 12/16/2018 TECHNIQUE: The pelvis was scanned utilizing a multidetector helical scanner from the iliac crest to the pubic symphysis after administration of contrast into the bladder via indwelling Oliver catheter. Coronal and sagittal reformations were obtained. Routine protocol was performed INTRACATHETER CONTRAST: 50cc Isovue 370 in 500cc saline. ORAL CONTRAST: Water RADIATION DOSE: Total DLP: 672.2 mGy*cm Dose modulation, iterative reconstruction, and/or weight based adjustment of the mA/kV was utilized to reduce the radiation dose to as low as reasonably achievable. FINDINGS: PELVIC ORGANS/BLADDER: Oliver catheter terminates in the bladder. Status post prostatectomy. Contrast opacifies the bladder with no evidence of contrast extravasation to suggest postoperative leak. PERITONEUM / RETROPERITONEUM: No free air or fluid. LYMPH NODES: No lymphadenopathy. VESSELS: Aneurysmal abdominal aorta measures up to 3.6 cm. Bilateral common iliac artery aneurysm measures up to 2.3 cm on the left and 2.0 cm on the right. GI TRACT: No abnormal bowel wall thickening or evidence of bowel obstruction. Normal appendix. BONES AND SOFT TISSUES: Bilateral inguinal hernias containing loops of colon on the left and loops of small bowel on the right. No acute osseous injury. Degenerative changes of the visualized lumbosacral spine. IMPRESSION: Status post prostatectomy. Contrast opacification of the bladder with no evidence of postoperative leak. Per discussion with Dr. Holden, Oliver catheter will be removed following the examination. Abdominal aortic aneurysm measuring up to 3.6 cm. Aneurysmal bilateral common iliac arteries measuring up to 2.3 cm on the left and 2.0 cm on the right. Bilateral inguinal hernias containing loops of colon on the left and loops of small bowel in the right. Signed by: Juancho Cabrera MD on 12/31/2018 5:10 PM
== END ==
LOC: CT 15:19
PROVIDERS: ATTEND Urology
DX: C61 Malignant neoplasm of prostate (principal)
CPT/HCPCS: 72193; J7040

== ENCOUNTER → 2019-02-24 | Day surgery (SDC) | payer MEDICARE ==
[2019-02-18 16:19] LABS: BASOPHILS # (AUTO) 0.1 (0.0-0.1); BASOPHILS % 0.8 % (0.0-1.0); EOSINOPHILS # (AUTO) 0.2 (0.0-0.4); EOSINOPHILS % 3.6 % (0.0-6.0); HEMATOCRIT 40.3 % (38.2-49.6); HEMOGLOBIN 13.7 g/dL (14.0-18.0); LYMPHOCYTES # (AUTO) 2.3 (1.0-3.2); MEAN CORPUSCULAR HEMOGLOBIN 30.7 pg (28-32); MEAN CORPUSCULAR VOLUME 90.4 fL (81-99); MONOCYTES # (AUTO) 0.7 (0.2-0.8); MONOCYTES % 10.9 % (4.4-11.3); NEUTROPHILS # (AUTO) 2.9 (2.1-6.9); NEUTROPHILS % 47.5 % (38.7-80.0); PLATELET COUNT 196 x10e3/uL (140-360); RED BLOOD COUNT 4.46 x10e6/uL (4.3-5.7); RED CELL DISTRIBUTION WIDTH 12.7 % (11.7-14.4)
[2019-02-18 16:41] LABS: BLOOD UREA NITROGEN 16 mg/dL (7-26); BUN/CREATININE RATIO 15 (6-25); CALCIUM 9.5 mg/dL (8.4-10.2); CARBON DIOXIDE 25 mmol/L (22-29); CHLORIDE 104 mmol/L (98-107); CREATININE, SERUM 1.06 mg/dL (0.72-1.25); EST GLOMERULAR FILTRATION RATE > 60 ML/MIN (60-); GLUCOSE 109 mg/dL (74-118); SODIUM 140 mmol/L (136-145)
--- NOTE | 2019-02-18 16:46 | Diagnostic Imaging Report ---
EXAMINATION: CHEST 2 VIEWS INDICATION: Preop. Inguinal hernia. ^PREOP ^[id number] ^[id number] COMPARISON: 11/03/2018 FINDINGS: TUBES and LINES: None. LUNGS: Lungs are well inflated. Lungs are clear. There is no evidence of pneumonia or pulmonary edema. PLEURA: No pleural effusion or pneumothorax. HEART AND MEDIASTINUM: The cardiomediastinal silhouette is normal in size and contour. Atherosclerotic calcifications of the thoracic aorta. BONES AND SOFT TISSUES: No acute fracture or dislocation. Moderate degenerative changes of the visualized spine. Postoperative changes of the right shoulder UPPER ABDOMEN: No free air under the diaphragm. IMPRESSION: No acute thoracic abnormality. Signed by: Dr. Steve Bell M.D. on 02/18/2019 4:43 PM
[~2019-02-24] MED LIST changes: +ACETAMINOPHEN 1000 MG/100 ML IV ONE; +BUPIVACAINE 0.25%/EPI 30ML SDV INJ ONE; +DEXAMETHASONE SOD PHOS INJ 4 MG/ML VIAL ONE; +FENTANYL CITRATE/PF 100MCG/2 ML INJ ONE; +GLYCOPYRROLATE INJ 1MG/ 5 ML SYR ONE; +LIDOCAINE HCL 1% LOCAL INJ 20 ML VIAL ONE; +LIDOCAINE HCL 2% LOCAL INJ 5 ML SDV VIAL INJ ONE; +MIDAZOLAM HCL 2 MG/2 ML VIAL ONE; +MORPHINE SULFATE INJ 10 MG/ML ONE; +ONDANSETRON HCL INJ 2MG/ML 2ML 2 MG/ML VIAL ONE; +PROPOFOL IV EMULSION 10 MG/ML 20 ML VIAL ONE; +SEVOFLURANE INHAL SOLN 250 ML PEN BTL ONE; -SODIUM CHLORIDE 0.9% 500ML 500 ML ONE; -VITAMIN D3400 UNIT PEG; +VITAMIN D3400 UNIT PO
--- NOTE | 2019-02-24 07:15 | NUR ---
SPIRITUAL CARE - Pre-Surgery Assessment: Pt in bed. Pt's at bedside. Pt reported supportive attention from family and friends. Intervention: I provided pastoral presence, hospitality, and sympathetic listening. I acquainted pt with availability of clinical services consultant while hospitalized. Outcome: Pt expressed appreciation for visit. No need for follow up indicated at this time. GIRISH [facility]ain Spiritual Care Department O: [phone] Pager: [phone] ([phone] calling from)
[2019-02-24 11:10] VITALS: BP 106/64
--- NOTE | 2019-02-24 16:56 | Operative Report ---
DATE OF PROCEDURE: 02/24/2019 SURGEON: Miguel Cerna MD PREOPERATIVE DIAGNOSIS: Left inguinal hernia. POSTOPERATIVE DIAGNOSIS: Large left direct inguinal hernia. OPERATION PERFORMED: Repair of left direct inguinal hernia with extended Prolene Hernia System. YARD DEMURRAGE CLERK: OLESYA Lee. ANESTHESIA: General. COMPLICATIONS: None. ESTIMATED BLOOD LOSS: Minimal. DESCRIPTION OF PROCEDURE: With the patient lying in bed in the supine position under good general anesthesia, the abdomen was prepped with Betadine solution and draped in the usual manner. A left inguinal incision was made. It was carried down through the subcutaneous tissue down to the external oblique aponeurosis. External oblique was then opened along the length of its fibers and the external inguinal ring was opened. The cord was then mobilized and retracted, contained alongside of the cord was a large indirect hernia sac, which actually extended all the way down into the upper scrotum. This was from the cord structures and then imbricated with a pursestring suture of 0 Ethibond. Exploration of the cord itself did not reveal the presence of any indirect hernia sac. The preperitoneal space was then entered right through the internal ring and a pocket was created without any difficulty. An extended Prolene Hernia System was then placed through the preperitoneal space and deployed without any difficulty. The overlay was then placed over the floor and split inferolaterally to allow for passage of the cord. The mesh was then sutured to the conjoined tendon and inguinal ligament using interrupted sutures of 2-0 Vicryl. The whole area was then thoroughly irrigated. Perfect hemostasis was ascertained. All layers were infiltrated on the way out with solution of 0.25% Marcaine and 1% lidocaine mixed in equal parts. The external oblique aponeurosis was closed with a running suture of 2-0 Vicryl. The subcutaneous tissue was approximated with 3-0 plain and the skin was closed with clips. A dressing was applied. The sponge, lap, and needle count was correct. The patient tolerated the procedure well and returned to the recovery room in stable condition. Miguel Cerna MD JLR/MODL /[id number]
== END | disposition home or self-care (01) ==
LOC: OR 05:14
PROVIDERS: ATTEND Surgery
DX: K40.90 Unilateral inguinal hernia, without obstruction or gangrene, not specified as recurrent (principal); Z01.810 Encounter for preprocedural cardiovascular examination; Z01.812 Encounter for preprocedural laboratory examination; Z01.811 Encounter for preprocedural respiratory examination; E11.9 Type 2 diabetes mellitus without complications; Z87.891 Personal history of nicotine dependence; I10 Essential (primary) hypertension; E78.5 Hyperlipidemia, unspecified
CPT/HCPCS: 36415 ×2; 49505; 71046; 80048; 82948; 85025; 93005; C1781; J0131; J1100; J2001 ×2; J2250; J2270; J2405; J2704; J3010; J3490

== ENCOUNTER → 2019-03-29 | Day surgery (SDC) | payer MEDICARE ==
[2019-03-22 11:08] LABS: BASOPHILS # (AUTO) 0.1 (0.0-0.1); BASOPHILS % 1.1 % (0.0-1.0); EOSINOPHILS # (AUTO) 0.4 (0.0-0.4); EOSINOPHILS % 7.7 % (0.0-6.0); HEMATOCRIT 38.4 % (38.2-49.6); HEMOGLOBIN 13.5 g/dL (14.0-18.0); LYMPHOCYTES # (AUTO) 1.8 (1.0-3.2); LYMPHOCYTES % 38.1 % (18.0-39.1); MEAN CORPUSCULAR HEMOGLOBIN 30.8 pg (28-32); MEAN CORPUSCULAR HGB CONC 35.2 g/dL (31-35); MEAN CORPUSCULAR VOLUME 87.5 fL (81-99); MONOCYTES # (AUTO) 0.5 (0.2-0.8); MONOCYTES % 11.6 % (4.4-11.3); NEUTROPHILS # (AUTO) 1.9 (2.1-6.9); NEUTROPHILS % 41.1 % (38.7-80.0); PLATELET COUNT 188 x10e3/uL (140-360); RED BLOOD COUNT 4.39 x10e6/uL (4.3-5.7); RED CELL DISTRIBUTION WIDTH 12.1 % (11.7-14.4)
[2019-03-22 11:27] LABS: ANION GAP 12.8 mmol/L (8-16); BLOOD UREA NITROGEN 12 mg/dL (7-26); BUN/CREATININE RATIO 12 (6-25); CALCIUM 8.7 mg/dL (8.4-10.2); CARBON DIOXIDE 25 mmol/L (22-29); CHLORIDE 108 mmol/L (98-107); CREATININE, SERUM 1.03 mg/dL (0.72-1.25); EST GLOMERULAR FILTRATION RATE > 60 ML/MIN (60-); GLUCOSE 121 mg/dL (74-118); POTASSIUM 3.8 mmol/L (3.5-5.1); SODIUM 142 mmol/L (136-145)
[~2019-03-29] MED LIST changes: -ACETAMINOPHEN 1000 MG/100 ML IV ONE; +CEFAZOLIN SOD 1 GM VIAL ONE; +EPHEDRINE SULFATE INJ 50 MG/ML VIAL ONE; +HYDROCODONE/APAP 7.5MG-325MG 1 EA TAB ONE; +KETOROLAC TROMETHAMINE 30 MG/ML VIAL ONE; -MORPHINE SULFATE INJ 10 MG/ML ONE
[2019-03-29 11:40] VITALS: BP 154/78
--- NOTE | 2019-03-29 17:45 | Operative Report ---
DATE OF PROCEDURE: 03/29/2019 SURGEON: Miguel Cerna MD PREOPERATIVE DIAGNOSIS: Right inguinal hernia. POSTOPERATIVE DIAGNOSIS: Right inguinal hernia. OPERATION PERFORMED: Repair of large right direct inguinal hernia with extended Prolene Hernia System. HUMAN RESOURCES LEADER: OLESYA Lee. ANESTHESIA: General. COMPLICATIONS: None. ESTIMATED BLOOD LOSS: Minimal. DESCRIPTION OF PROCEDURE: With the patient lying in bed in the supine position under good general anesthesia, the abdomen was prepped with Betadine solution and draped in the usual manner. A right inguinal incision was made. It was carried down through the subcutaneous tissue down to the external oblique aponeurosis. External oblique was opened along the length of its fibers and external inguinal ring was opened. The cord was then mobilized and retracted. Exploration of the cord revealed the presence of lipoma of the cord, which was from the cord structures, ligated with 2-0 Vicryl and divided. There was no indirect hernia sac. There was, however, a large bulging hernia through the direct space taking up most of the direct space. The direct hernia was then imbricated with a pursestring suture of 0 Ethibond. After this was done, the preperitoneal space was then entered through the internal ring and a pocket was created without any difficulty. An extended Prolene Hernia System was then placed in the preperitoneal space and the underlay patch was deployed without any problems. The overlay patch was then placed over the floor and split inferolaterally to allow for passage of the cord. The mesh was sutured to the conjoined tendon and the inguinal ligament using interrupted sutures of 2-0 Vicryl. The whole area was thoroughly irrigated. Perfect hemostasis was ascertained. All layers were infiltrated on the way out with solution of 0.25% Marcaine and 1% lidocaine mixed in equal parts. The external oblique aponeurosis was then closed with a running suture of 2-0 Vicryl. The subcutaneous tissue was approximated with 3-0 plain and the skin was closed with clips. A dressing was applied. The sponge, lap, and needle count was correct. The patient tolerated the procedure well and returned to the recovery room in stable condition. MD MAGALYS HopkinsR/MODL /[id number]
== END | disposition home or self-care (01) ==
LOC: OR 06:32
PROVIDERS: ATTEND Surgery
DX: K40.90 Unilateral inguinal hernia, without obstruction or gangrene, not specified as recurrent (principal); D17.6 Benign lipomatous neoplasm of spermatic cord; I10 Essential (primary) hypertension; R00.1 Bradycardia, unspecified; I44.0 Atrioventricular block, first degree; M06.9 Rheumatoid arthritis, unspecified; M19.90 Unspecified osteoarthritis, unspecified site; E78.5 Hyperlipidemia, unspecified; E11.9 Type 2 diabetes mellitus without complications; Z01.812 Encounter for preprocedural laboratory examination; Z85.46 Personal history of malignant neoplasm of prostate; Z87.891 Personal history of nicotine dependence
CPT/HCPCS: 36415 ×2; 49505; 80048; 82948; 85025; C1781; J0690; J1100; J1885; J2001 ×2; J2250; J2405; J2704; J3010; J3490

== ENCOUNTER 2021-01-30 20:13 | Observation (INO) | payer MEDICARE ==
[~2021-01-30] VITALS: Ht 175.3 cm; Wt 113.4 kg
[~2021-01-30 20:13] MED LIST changes: -BUPIVACAINE 0.25%/EPI 30ML SDV INJ ONE; -CEFAZOLIN SOD 1 GM VIAL ONE; -DEXAMETHASONE SOD PHOS INJ 4 MG/ML VIAL ONE; -EPHEDRINE SULFATE INJ 50 MG/ML VIAL ONE; -FENTANYL CITRATE/PF 100MCG/2 ML INJ ONE; -GLYCOPYRROLATE INJ 1MG/ 5 ML SYR ONE; -HYDROCODONE/APAP 7.5MG-325MG 1 EA TAB ONE; -KETOROLAC TROMETHAMINE 30 MG/ML VIAL ONE; -LIDOCAINE HCL 1% LOCAL INJ 20 ML VIAL ONE; -LIDOCAINE HCL 2% LOCAL INJ 5 ML SDV VIAL INJ ONE; -MIDAZOLAM HCL 2 MG/2 ML VIAL ONE; -ONDANSETRON HCL INJ 2MG/ML 2ML 2 MG/ML VIAL ONE; -PROPOFOL IV EMULSION 10 MG/ML 20 ML VIAL ONE; -SEVOFLURANE INHAL SOLN 250 ML PEN BTL ONE
[2021-01-30 20:53] LABS: BASOPHILS # (AUTO) 0.1 (0.0-0.1); BASOPHILS % 0.7 % (0.0-1.0); EOSINOPHILS # (AUTO) 0.2 (0.0-0.4); EOSINOPHILS % 2.3 % (0.0-6.0); HEMATOCRIT 40.2 % (38.2-49.6); HEMOGLOBIN 13.8 g/dL (14.0-18.0); LYMPHOCYTES # (AUTO) 1.4 (1.0-3.2); MEAN CORPUSCULAR HEMOGLOBIN 31.9 pg (28-32); MEAN CORPUSCULAR HGB CONC 34.3 g/dL (31-35); MEAN CORPUSCULAR VOLUME 92.8 fL (81-99); MONOCYTES # (AUTO) 0.7 (0.2-0.8); MONOCYTES % 9.4 % (4.4-11.3); NEUTROPHILS % 68.2 % (38.7-80.0); PLATELET COUNT 193 x10e3/uL (140-360); RED BLOOD COUNT 4.33 x10e6/uL (4.3-5.7); RED CELL DISTRIBUTION WIDTH 12.3 % (11.7-14.4)
[2021-01-30 21:12] LABS: ALBUMIN 4.5 g/dL (3.5-5.0); ALBUMIN/GLOBULIN RATIO 1.2 (0.8-2.0); ANION GAP 15.4 mmol/L (8-16); CALCIUM 9.2 mg/dL (8.4-10.2); CREATININE, SERUM 1.57 mg/dL (0.72-1.25); POTASSIUM 4.4 mmol/L (3.5-5.1)
[2021-01-30 21:19] LABS: CREATINE KINASE MB 2.7 ng/mL (0-5.0)
[2021-01-30] MEDS ORDERED: ONDANSETRON HCL INJ 2MG/ML 2ML 2 MG/ML VIAL IV PRN (23:00)
[2021-01-30] MEDS ORDERED: SODIUM CHLORIDE FLUSH 10 ML SYR INJ PRN (23:00)
[2021-01-31] VITALS (7 sets, daily range): BP systolic 134–153; BP diastolic 65–95
[2021-01-31] MEDS ORDERED: VITAMIN B-1100 M1 PO (02:00)
[2021-01-31] MEDS ORDERED: VITAMIN C500 MG PO (02:00)
[2021-01-31] MEDS ORDERED: PNEUMOCOCCAL VACCINE POLYVALENT 23 MCG/0.5 ML VIAL IM SCH (02:08)
[2021-01-31] MEDS: NAPROXEN 250 MG TAB PO PRN ×2 (02:26→12:05)
[2021-01-31 06:45] LABS: BASOPHILS # (AUTO) 0.1 (0.0-0.1); BASOPHILS % 0.7 % (0.0-1.0); EOSINOPHILS # (AUTO) 0.2 (0.0-0.4); EOSINOPHILS % 3.2 % (0.0-6.0); HEMATOCRIT 35.3 % (38.2-49.6); HEMOGLOBIN 12.5 g/dL (14.0-18.0); LYMPHOCYTES # (AUTO) 2.3 (1.0-3.2); LYMPHOCYTES % 33.1 % (18.0-39.1); MEAN CORPUSCULAR HEMOGLOBIN 32.2 pg (28-32); MEAN CORPUSCULAR HGB CONC 35.4 g/dL (31-35); MONOCYTES # (AUTO) 0.7 (0.2-0.8); MONOCYTES % 10.7 % (4.4-11.3); NEUTROPHILS # (AUTO) 3.6 (2.1-6.9); PLATELET COUNT 180 x10e3/uL (140-360); RED BLOOD COUNT 3.88 x10e6/uL (4.3-5.7); RED CELL DISTRIBUTION WIDTH 12.2 % (11.7-14.4)
[2021-01-31 07:10] LABS: ALBUMIN 3.9 g/dL (3.5-5.0); ALBUMIN/GLOBULIN RATIO 1.3 (0.8-2.0); ANION GAP 16.1 mmol/L (8-16); CALCIUM 9.1 mg/dL (8.4-10.2); CREATININE, SERUM 1.34 mg/dL (0.72-1.25); POTASSIUM 4.1 mmol/L (3.5-5.1)
[2021-01-31 07:26] LABS: CREATINE KINASE 155 IU/L (30-200)
[2021-01-31] MEDS ORDERED: DEXTROSE 50% SYRINGE 50 ML IV PRN (13:30)
[2021-01-31] MEDS ORDERED: INSULIN REGULAR, HUMAN 100 UNIT/1 ML SQ SCH (16:30)
[2021-01-31 16:48] LABS: CREATINE KINASE 171 IU/L (30-200)
[2021-01-31] MEDS ORDERED: LISINOPRIL 10 MG TAB PO SCH (17:00)
[2021-01-31] MEDS ORDERED: PNEUMOCOCCAL VACCINE POLYVALENT 23 MCG/0.5 ML VIAL IM ONE (18:00)
[2021-01-31] MEDS ORDERED: ATORVASTATIN 20 MG TAB PO SCH (21:00)
[2021-02-01] MEDS ORDERED: PANTOPRAZOLE SOD 40 MG TABEC PO SCH (07:30)
[2021-02-01] MEDS ORDERED: METFORMIN HCL PO SCH (08:00)
[2021-02-01] MEDS ORDERED: SITAGLIPTIN PHOS PO SCH (08:00)
[2021-02-01] MEDS ORDERED: (Cholecalciferol (Vitamin D3) (Vitamin D3) 125 MCG) PO SCH (09:00)
[2021-02-01] MEDS ORDERED: ASCORBIC ACID 500 MG TAB PO SCH (09:00)
== END 2021-01-31 17:28 | disposition home or self-care (01) ==
LOC: ER 20:36 → ERHOLD 23:01 → MED/SURG2 01-31 01:00
DX: R55 Syncope and collapse (principal); E11.9 Type 2 diabetes mellitus without complications; E78.5 Hyperlipidemia, unspecified; C61 Malignant neoplasm of prostate; T14.8XXA Other injury of unspecified body region, initial encounter; M25.512 Pain in left shoulder; S16.1XXA Strain of muscle, fascia and tendon at neck level, initial encounter; S00.81XA Abrasion of other part of head, initial encounter; W19.XXXA Unspecified fall, initial encounter
CPT/HCPCS: 36415 ×2; 70450; 70544; 70551; 72125; 73030; 80053 ×2; 82550 ×2; 82553 ×2; 82948; 83036; 84484 ×2; 85025 ×2; 90732; 93005; 93306; 93880; 99284; G0378 ×2; U0002

== ENCOUNTER → 2021-06-08 | Outpatient (CLI) | payer MEDICARE ==
[~2021-06-08] MED LIST changes: +VITAMIN B-1100 M1 PO; +VITAMIN C500 MG PO
== END ==
LOC: US 12:38
PROVIDERS: ATTEND Urology
DX: N18.9 Chronic kidney disease, unspecified (principal)
CPT/HCPCS: 76770

== ENCOUNTER → 2021-07-23 | Outpatient (CLI) | payer MEDICARE | LOC: RAD 12:30 | PROVIDERS: ATTEND Urology | DX: N20.0 Calculus of kidney (principal) | CPT/HCPCS: 74018 ==

== ENCOUNTER 2022-01-16 18:21 | Emergency (ER) | payer MEDICARE ==
[~2022-01-16] VITALS: Ht 175.3 cm; Wt 113.4 kg
[2022-01-16] MEDS ORDERED: KETOROLAC TROMETHAMINE 30 MG/ML VIAL IV STA (18:29)
[2022-01-16] MEDS ORDERED: ONDANSETRON HCL INJ 2MG/ML 2ML 2 MG/ML VIAL IV PRN (18:30)
[2022-01-16 19:05] LABS: BASOPHILS # (AUTO) 0.1 (0.0-0.1); CLARITY,URINE SL CLOUDY (CLEAR); COLOR,URINE STRAW (YELLOW); EOSINOPHILS # (AUTO) 0.2 (0.0-0.4); HEMATOCRIT 41.3 % (38.2-49.6); HEMOGLOBIN 14.3 g/dL (14.0-18.0); LEUKOCYTE ESTERASE ,URINE NEGATIVE (NEGATIVE); LYMPHOCYTES # (AUTO) 2.1 (1.0-3.2); LYMPHOCYTES % 37.1 % (18.0-39.1); MEAN CORPUSCULAR HEMOGLOBIN 32.6 pg (28-32); MEAN CORPUSCULAR HGB CONC 34.6 g/dL (31-35); MEAN CORPUSCULAR VOLUME 94.1 fL (81-99); MONOCYTES # (AUTO) 0.4 (0.2-0.8); MONOCYTES % 7.3 % (4.4-11.3); NEUTROPHILS # (AUTO) 2.9 (2.1-6.9); NEUTROPHILS % 50.4 % (38.7-80.0); NITRITE,URINE NEGATIVE (NEGATIVE); PLATELET COUNT 188 x10e3/uL (140-360); PROTEIN,URINE DIPSTICK TRACE (NEGATIVE); RED BLOOD COUNT 4.39 x10e6/uL (4.3-5.7)
[2022-01-16 19:06] LABS: KETONES,URINE TRACE (NEGATIVE); URINE UROBILINOGEN 0.2 mg/dL (0.2 - 1)
[2022-01-16 19:14] LABS: BACTERIA,URINE FEW /HPF; MUCUS,URINE MANY (RARE)
[2022-01-16 19:23] LABS: ALBUMIN 4.4 g/dL (3.5-5.0); ALBUMIN/GLOBULIN RATIO 1.3 (0.8-2.0); ANION GAP 21.1 mmol/L (8-16); CALCIUM 9.1 mg/dL (8.4-10.2); CREATININE, SERUM 1.42 mg/dL (0.72-1.25); POTASSIUM 4.1 mmol/L (3.5-5.1)
[2022-01-16] MEDS ORDERED: METHOCARBAMOL750 MG PO (19:42)
[2022-01-16] MEDS ORDERED: IBUPROFEN600 MG PO (19:42)
== END 2022-01-16 21:27 | disposition home or self-care (01) ==
LOC: ER 18:45
DX: M54.50 Low back pain, unspecified (principal); E11.65 Type 2 diabetes mellitus with hyperglycemia; R91.8 Other nonspecific abnormal finding of lung field; I10 Essential (primary) hypertension; E78.5 Hyperlipidemia, unspecified; Z85.46 Personal history of malignant neoplasm of prostate
CPT/HCPCS: 36415; 74176; 80053; 81001; 85025; 99284; J1885; J2405